=== PATIENT | female | born 1965 | race Caucasian/White ===

== ENCOUNTER 2019-10-28 09:28 | Outpatient (CLI) | payer OTHER, SELFPAY ==
--- NOTE | ~2019-10-28 | MM_ITS ---
EXAMINATION: MM screening [facility] BI w ryan HISTORY: Screening TECHNIQUE: Craniocaudal and mediolateral oblique 3-D tomosynthesis images were obtained and synthetic 2-D images were generated. CAD analysis was submitted and interpreted. COMPARISON: No prior mammogram is available for comparison at this institution. BREAST PARENCHYMAL COMPOSITION: There are scattered areas of fibroglandular density. FINDINGS: There is no evidence of suspicious mass, calcification, or architectural distortion to sugg est malignancy in either breast. There has been no suspicious interval change. IMPRESSION: 1. No mammographic evidence of malignancy. 2. Recommend routine screening mammography in one year. BI-RADS Category 1: Negative Reviewed, dictated and finalized at location A.
== END 2019-10-28 09:29 | disposition home or self-care (01) ==
LOC: ANHIMG 09:31
PROVIDERS: PCP Family Medicine; Visit Provider Family Medicine
DX: Z12.31 Encounter for screening mammogram for malignant neoplasm of breast (principal)
CPT/HCPCS: 77063; 77067

== ENCOUNTER 2020-03-01 12:15 | Emergency (ER) | payer OTHER, SELFPAY ==
--- NOTE | 2020-03-01 12:22 | ED.GENADULT ---
HPI - General Adult General Chief complaint: Unspecified Stated complaint: right ankle spider bite/uti Time Seen by Provider: 03/01/20 12:26 Source: patient Mode of arrival: ambulatory Limitations: no limitations History of Present Illness HPI narrative: 54-year-old female patient presents to the [facility] with complaints of a wound to the right ankle that she first noticed today. Patient denies any itching to the area states that she did use Pred to the area. Patient states she has been bit by a spider before and wanted to come and get checked out. Patient also complaining of odor and dark urine for the last couple of weeks. Denies any urgency, frequency. Patient states she is just had some overall low back pain for the last couple weeks as well. Patient states that she knows she does not drink enough water and does admit to daily beer and liquor use. Patient denies any chest pain, shortness of breath. Denies any fevers, body aches or chills. Patient denies any nausea, vomiting or diarrhea Related Data Home Medications Medication Instructions Recorded Confirmed aspirin 325 mg PO DAILY 03/01/20 03/01/20 ergocalciferol (vitamin D2) 1,250 mcg PO WEEKLY 03/01/20 03/01/20 [Vitamin D2] hydroxyzine pamoate [Vistaril] 25 mg PO TID 03/01/20 03/01/20 lisinopril [Zestril] 40 mg PO DAILY 03/01/20 03/01/20 sertraline [Zoloft] 100 mg PO DAILY 03/01/20 03/01/20 Allergies Allergy/AdvReac Type Severity Reaction Status Date / Time No Known Allergies Allergy Mild Verified 03/01/20 12:43 Review of Systems Review of Systems: Narrative: CONSTITUTIONAL: Denies fever, chills, or sweats. EYES: Denies visual changes, redness, or discharge. ENT: Denies rhinorrhea, congestion, sore throat, or otalgia. CARDIOVASCULAR: Denies chest pain, palpitations, or edema. RESPIRATORY: Denies cough or dyspnea. GASTROINTESTINAL: Denies abdominal pain, nausea, vomiting, or diarrhea. GENITOURINARY: Positive dysuria, denies hematuria. SKIN: Denies rash or itching. Positive wound to right ankle MUSCULOSKELETAL: Positive back pain, denies joint pain, or myalgia. NEUROLOGIC: Denies headache, numbness, or weakness. PSYCHIATRIC: Denies anxiety or depression. [facility] Past Medical History Medical History (Updated 03/01/20 @ 13:18 by CHARMAINE Estrada) Alcoholism Liquor and beer daily Depression Endocarditis Hyperparathyroidism Family History Family History (Updated 03/01/20 @ 13:06 by CHARMAINE Estrada) Other Liver disease Social History Social History (Updated 03/01/20 @ 13:06 by CHARMAINE Estrada) Alcohol intake: current Alcohol use details: Liquor and beer daily Gender identity (if verbalized by the patient): Female Comments At the time of my signature I agree with nursing past medical history, surgical, social, and family history. There is no relevant family history pertinent to the presenting complaint. Exam Narrative: Exam Narrative: GENERAL: Well-appearing, well-nourished, and in no acute distress. Patient having a hard time concentrating on the physical exam HEAD: Normocephalic, atraumatic. EYES: PERRLA and EOMI. no obvious jaundice noted to the eyes at this time. ENT: Nares clear, no rhinorrhea or epistaxis. Mucous membranes moist. Posterior pharynx with no erythema, tonsillar Tab, exudates or lesions present. Bilateral TMs are clear with no erythema or foreign bodies in the canal. NECK: Supple. No lymphadenopathy CHEST: Clear to auscultation. No respiratory distress. HEART: Regular rate and rhythm. No murmur heard. Normal peripheral pulses. ABDOMEN: Soft, nontender, nondistended, normal active bowel sounds. No CVA tenderness. Patient does complain of an achiness to the right upper flank that wraps around to the right upper abdomen EXTREMITIES: Normal range of motion. No edema. SKIN: Warm, dry, no rash. Patient's overall skin color looks a little grayish no obvious jaundice at this time. Patient has a very sma
[2020-03-01 12:30] VITALS: BP 144/84; PULSE 78; RESP 16; TEMP 37.1; O2SAT 99
== END 2020-03-01 13:15 | disposition short-term general hospital (02) ==
PROVIDERS: Emergency Provider Nurse Practitioner Family
DX: S91.001A Unspecified open wound, right ankle, initial encounter (principal); X58.XXXA Exposure to other specified factors, initial encounter; R30.0 Dysuria; F10.20 Alcohol dependence, uncomplicated; F32.9 Major depressive disorder, single episode, unspecified; E21.3 Hyperparathyroidism, unspecified
CPT/HCPCS: 81003; 87086; 87088; 99213; G0463

== ENCOUNTER 2020-03-02 10:09 | Emergency (ER) | payer OTHER, SELFPAY ==
[2020-03-02 10:18] VITALS: BP 135/80; PULSE 77; RESP 18; TEMP 36.6; O2SAT 99
--- NOTE | 2020-03-02 11:16 | ED.GENADULT ---
HPI - General Adult General Chief complaint: Alcohol Stated complaint: etoh withdrawl, liver problems Time Seen by Provider: 03/02/20 11:13 Source: RN notes reviewed History of Present Illness HPI narrative: Patient presents emergency department from home for right ankle wound. Patient states wounds been present for the past 3 days she notes mild erythema to the area but denies any drainage. She states she gone to the urgent care yesterday and to come to the emergency department today for further evaluation. Patient states that she has had no fevers or chills chest pain shortness of breath or any other symptoms she states she does have a history of EtOH abuse and drinks what ever alcohol that she can find she states she last drink yesterday. She denies any seizures or change in mental status Related Data Home Medications Medication Instructions Recorded Confirmed aspirin 325 mg PO DAILY 03/01/20 03/01/20 ergocalciferol (vitamin D2) 1,250 mcg PO WEEKLY 03/01/20 03/01/20 [Vitamin D2] hydroxyzine pamoate [Vistaril] 25 mg PO TID 03/01/20 03/01/20 lisinopril [Zestril] 40 mg PO DAILY 03/01/20 03/01/20 sertraline [Zoloft] 100 mg PO DAILY 03/01/20 03/01/20 Allergies Allergy/AdvReac Type Severity Reaction Status Date / Time No Known Allergies Allergy Mild Verified 03/02/20 10:28 Review of Systems Review of Systems: Narrative: Gen.: Denies fevers or chills Eyes: Denies eye pain or visual change ENT: Denies congestion Respiratory: Denies shortness of breath or cough CV: Denies chest pain or palpitations GI: Denies abdominal pain nausea, emesis or diarrhea Musculoskeletal: Denies back pain or muscle pain Neuro: Denies numbness, tingling, weakness or focal weakness Skin: See HPI Except as documented, all other systems reviewed and negative PMF Past Medical History Medical History Alcoholism Liquor and beer daily Depression Endocarditis Hyperparathyroidism Family History Family History (Updated 03/01/20 @ 13:06 by CHARMAINE Estrada) Other Liver disease Social History Social History (Updated 03/02/20 @ 11:17 by Ernesto Tam DO) Smoking status: Current every day smoker Alcohol intake: current Gender identity (if verbalized by the patient): Female Exam Narrative: Exam Narrative: APPEARANCE: No acute distress, nontoxic, resting in bed EYES: EOMI HEENT: Normocephalic, atraumatic, OMM RESPIRATORY: No respiratory distress Clear to auscultation bilaterally with no rhonchi wheezing or rales. CARDIOVASCULAR: Regular rate and rhythm without murmurs rubs or gallops. ABDOMINAL: Soft, nontender, nondistended, no rebound or guarding MUSCULOSKELETAl: Moves all extremities. No clubbing, cyanosis or edema. Right sided ankle with full range of the right ankle without pain dorsalis pedis pulse 2+ neurovascular intact NEURO: Awake and alert. Following commands, speech normal, no focal deficits SKIN:: Warm, dry. Right medial ankle with area of erythema no drainage or fluctuance the remainder the ankle is nontender PSYCHIATRIC: Normal affect/mood, Course Course Emergency Course: Reviewed records from urgent care yesterday Patient is stating that she wishes to leave at this time. States she would like to return home so she can smoke and drink alcohol. Currently awaiting UA result which is not return I did plan on starting the patient on Keflex for her foot which will cover urine. I discussed with patient her current alcohol use. At this time she does not have any intention of stopping her alcohol use on a daily basis. I did discuss with the patient that she does wish to stop resources can be given Discussed with patient results of workup and diagnosis. Discussed need for follow-up with primary care, proper use of medication, and reasons to return to the emergency department. Patient understands and agrees to current treatment plan Vital Signs Vital signs:
[2020-03-02 11:36] LABS: Basophils Percent Auto 0.3 % (0.2-1.2); Eosinophils Absolute Auto 0.7 K/mm3 (0-0.3); Hematocrit 34.2 % (37.0-47.0); Hemoglobin 11.5 g/dL (12.0-15.0); Immature Granulocyte Absolute 0.04 K/mm3 (0.00-0.031); Immature Granulocyte Percent A 0.6 % (0-0.5); Lymphocytes Absolute Auto 1.59 K/mm3 (0.9-3.2); Lymphocytes Percent Auto 22.5 % (18.3-44.2); Mean Corpuscular HGB Conc 33.6 g/dl (32-36); Mean Corpuscular Hemoglobin 31.2 pg (26-34); Mean Corpuscular Volume 92.7 fl (80-100); Mean Platelet Volume 8.9 fl (7.4-10.4); Monocytes Absolute Auto 0.8 K/mm3 (0.1-0.6); Neutrophils Absolute Auto 3.9 K/mm3 (1.3-6.7); Neutrophils Percent Auto 55.6 % (45.5-73.1); Platelet Count Result 296 k/mm3 (150-375); Red Blood Count 3.69 M/mm3 (4.2-5.4); Red Cell Distribution Width 13.6 % (11.5-14.5); White Blood Count 7.1 K/mm3 (4.5-10.0)
[2020-03-02 11:46] LABS: INR 0.8; Prothrombin Time 11.8 Seconds (11.1-14.7)
[2020-03-02 11:47] LABS: Partial Thromboplastin Time 27.5 SECONDS (22.3-36.8)
[2020-03-02 11:51] LABS: Alanine Aminotransferase 50 U/L (4-35); Albumin Level 3.7 g/dL (3.5-5.1); Alkaline Phosphatase 143 U/L (38-126); Anion Gap 7 mmol/L (8-16); Aspartate Amino Transferase 57 U/L (14-36); Bilirubin,Total 0.4 mg/dL (0.2-1.3); Blood Urea Nitrogen 19 mg/dL (7-17); Calcium 9.1 mg/dL (8.4-10.2); Carbon Dioxide 24 mmol/L (22-30); Chloride 107 mmol/L (98-107); Estimated CRCL calculation 66 ml/min; Estimated Glomerular Filt Rate > 60; Glucose 87 mg/dL (65-105); Sodium 138 mmol/L (137-145)
[2020-03-02 11:57] LABS: Ethanol 15 mg/dL (<10); Salicylate < 1.0 mg/dL (2-20)
--- NOTE | 2020-03-02 12:10 | PC.NURSE ---
urine specimen collected and sent to lab. patient wants to eat and wants to go home soon. updated on current treatment plan and expected wait time.
[2020-03-02 12:28] LABS: Add Urine Microscopic? YES; Appearance Urine Clear (Clear); Bacteria Urine Trace /hpf; Bilirubin Urine Negative (Negative); Blood Urine Negative (Negative); Color Urine Yellow (Yellow); Glucose Urine UA Negative (Negative); Ketones Urine Negative (Negative); Leukocyte Esterase Ur 1+ LEU/UL (Negative); Mucus Urine Rare /lpf; Nitrate Urine Negative (Negative); Protein Urine 1+ mg/dL (Negative); Specific Grav Ur 1.028 (1.001-1.035); Squamous Epithelial Cell Urine Many /hpf (Few); Urobilinogen Urine Negative mg/dL (<2.0)
[2020-03-02 12:40] VITALS: BP 146/81; RESP 18; O2SAT 96
[2020-03-02 12:53] LABS: Barbiturate Screen Urine Negative (Negative); Benzodiazepines Screen Urine Negative (Negative)
[2020-03-02 12:55] LABS: Cannabinoid Screen Urine Negative (Negative); Cocaine Screen Urine Positive (Negative); Methadone Screen Urine Negative (Negative); Opiate Screen Urine Negative (Negative); Phencyclidine Screen Urine Negative (Negative)
[2020-03-02 13:45] LABS: Amphetamine Screen Urine Positive (Negative)
== END 2020-03-02 12:42 | disposition home or self-care (01) ==
PROVIDERS: Emergency Provider Emergency Medicine; PCP Family Medicine
DX: L03.115 Cellulitis of right lower limb (principal); F10.10 Alcohol abuse, uncomplicated; F17.200 Nicotine dependence, unspecified, uncomplicated; F32.9 Major depressive disorder, single episode, unspecified; E21.3 Hyperparathyroidism, unspecified
CPT/HCPCS: 36415; 80053; 80307; 81001; 85025; 85610; 85730; 99283

== ENCOUNTER 2020-10-03 15:18 | Emergency (ER) | payer OTHER, SELFPAY ==
[2020-10-03 15:35] VITALS: BP 116/90; PULSE 95; RESP 16; TEMP 36.7; O2SAT 95
--- NOTE | 2020-10-03 16:17 | ED.SKABFB ---
HPI - Skin/Abscess/Foreign Bdy General Chief complaint: Extremity Injury, Lower Stated complaint: Foot Pain Time Seen by Provider: 10/03/20 16:04 Source: patient and RN notes reviewed Mode of arrival: ambulatory Limitations: no limitations History of Present Illness HPI narrative: Patient presents today complaining of left second toe wound, redness, swelling, and pain. She dropped a ceramic lid on her foot 3 days ago, sustaining an injury that is now draining fluid. 2 months ago, patient had hammertoe fixed on the affected toe with an implant placed in this toe. States she has tried to reach her surgeon to notify them of this injury, but has been unable to. She currently rates her pain 09/03. She has been applying ice and taking naproxen for her pain. MD complaint: discoloration Related Data Home Medications Medication Instructions Recorded Confirmed amlodipine 5 mg PO DAILY 10/03/20 10/03/20 atorvastatin 20 mg PO DAILY 10/03/20 10/03/20 baclofen 10 mg PO BID 10/03/20 10/03/20 ergocalciferol (vitamin D2) 1,250 mcg PO WEEKLY 10/03/20 10/03/20 hydroxyzine pamoate 50 mg PO TID PRN 10/03/20 10/03/20 lisinopril 40 mg PO DAILY 10/03/20 10/03/20 meloxicam 15 mg PO DAILY 10/03/20 10/03/20 Allergies Allergy/AdvReac Type Severity Reaction Status Date / Time No Known Allergies Allergy Verified 10/03/20 16:01 Review of Systems Review of Systems: Narrative: CONSTITUTIONAL: Denies body aches, fever, chills, or sweats. EYES: Denies visual changes, redness, or discharge. ENT: Denies rhinorrhea, congestion, sore throat, or otalgia. CARDIOVASCULAR: Denies chest pain, palpitations, or edema. RESPIRATORY: Denies cough or dyspnea. GASTROINTESTINAL: Denies abdominal pain, nausea, vomiting, or diarrhea. GENITOURINARY: Denies dysuria or hematuria. SKIN: Denies rash, itching. MUSCULOSKELETAL: Denies back pain, or myalgia. + Left second toe wound NEUROLOGIC: Denies headache, numbness, tingling, or weakness. PSYCH: Denies depression or anxiety. PMFSH Comments At time of signature, I have reviewed and agree with nursing past medical, surgical, social and family history unless otherwise noted. Please see nursing chart for further information. There is no relevant family history pertinent to the presenting complaint Exam Narrative: Exam Narrative: GENERAL: Well-appearing, well-nourished, and in no acute distress. HEAD: Normocephalic, atraumatic. EYES: EOMI. No redness or drainage. Conjunctivae normal. ENT: Mucous membranes pink and moist. NECK: Normal AROM. CHEST: No respiratory distress. EXTREMITIES:Left 2nd toe moderate edema and erythema. 7 mm x 5 mm superficial wound draining serous fluid to the proximal phalanx, just distal to the tip of the healed incision for the hammertoe. Distal sensation intact. Capillary refill normal. SKIN: Warm, dry, no rash. Capillary refill normal. Normal skin turgor. NEURO: No focal deficits. Alert and oriented x3. Gait steady. PSYCH: Normal affect. No signs of depression or anxiety. Course Vital Signs Vital signs: Vital Signs Temperature 98.1 F 10/03/20 15:35 Pulse Rate 95 10/03/20 15:35 Respiratory Rate 16 10/03/20 15:35 Blood Pressure 116/90 10/03/20 15:35 Pulse Oximetry 95 10/03/20 15:35 Temperature 98.1 F 10/03/20 15:35 Pulse Rate 95 10/03/20 15:35 Respiratory Rate 16 10/03/20 15:35 Blood Pressure 116/90 10/03/20 15:35 Pulse Oximetry 95 10/03/20 15:35 Reviewed. Pt has been instructed to follow up with her PCP regarding her elevated blood pressure today. MDM - Skin/Abscess/Foreign Bdy Differential Diagnosis Differential diagnosis: Likely abscess of skin or subcutaneous tissue, cellulitis and impetigo Critical Care Time Critical Care Time Critical Care Time: No Discharge Plan Discharge Clinical Impression: Cellulitis of second toe of left foot Patient Disposition: Home, Self-Care Condition: Stable Instructions: Antibiotic Form
== END 2020-10-03 16:28 | disposition home or self-care (01) ==
PROVIDERS: Emergency Provider Nurse Practitioner; PCP Family Medicine
DX: L03.032 Cellulitis of left toe (principal); G25.81 Restless legs syndrome; E78.00 Pure hypercholesterolemia, unspecified; I10 Essential (primary) hypertension
CPT/HCPCS: 99203; G0463

== ENCOUNTER 2020-10-31 08:03 | Outpatient (CLI) | payer OTHER, SELFPAY ==
--- NOTE | ~2020-10-31 | MM_ITS ---
EXAMINATION: MM screening [facility] BI w ryan HISTORY: Screening TECHNIQUE: Craniocaudal and mediolateral oblique 3-D tomosynthesis images were obtained and synthetic 2-D images were generated. CAD analysis was submitted and interpreted. COMPARISON: 10/28/2019 BREAST PARENCHYMAL COMPOSITION: There are scattered areas of fibroglandular density. FINDINGS: There is a 4 mm mass in the lower inner quadrant of the right breast. The left breast is st able without evidence for malignancy. IMPRESSION: 1. New right breast mass, lower inner quadrant. 2. Additional mammographic views and possible breast ultrasound are recommended. BI-RADS Category 0: Incomplete: Needs additional imaging evaluation. Reviewed, dictated and finalized at location A. IMPRESSION: 1. New right breast mass, lower inner quadrant. 2. Additional mammographic views and possible breast ultrasound are recommended . BI-RADS Category 0: Incomplete: Needs additional imaging evaluation.
== END 2020-10-31 08:04 | disposition home or self-care (01) ==
LOC: ANHIMG 08:07
PROVIDERS: PCP Family Medicine; Visit Provider Family Medicine
DX: Z12.31 Encounter for screening mammogram for malignant neoplasm of breast (principal); R92.8 Other abnormal and inconclusive findings on diagnostic imaging of breast
CPT/HCPCS: 77063; 77067

== ENCOUNTER 2020-11-04 07:31 | Inpatient (IN) | payer OTHER, SELFPAY ==
[2020-11-04] VITALS (7 sets, daily range): BP systolic 85–140; BP diastolic 52–89; PULSE 80–97; RESP 18–25; TEMP 36.4–37.6; O2SAT 93–99; BMI 32.1
--- NOTE | ~2020-11-04 | US_ITS ---
EXAMINATION: US renal BI DATE: 11/05/2020 14:14 INDICATION: Acute kidney injury TECHNIQUE: Multiple grayscale and Doppler ultrasound images of the kidneys were obtained. COMPARISON: None. FINDINGS: The right kidney measures 9.6 x 5.0 x 4.7 cm. The left kidney measures 10.3 x 5.6 x 5.0 cm. The kidneys demonstrate normal parenchymal echogenicity. There is no hydronephrosis. The bladder is normal. IMPRESSION: 1. Normal kidneys without hydronephrosis. Reviewed, dictated and finalized at location B.
--- NOTE | ~2020-11-04 | US_ITS ---
EXAMINATION: US abdomen limited DATE: 11/04/2020 11:01 INDICATION: Right upper quadrant abdominal pain. TECHNIQUE: Multiple grayscale and Doppler ultrasound images of the abdomen were obtained. COMPARISON: CT abdomen and pelvis 11/04/2020 FINDINGS: The visualized portions of the head and body of the pancreas are normal. The liver is alejandro l without focal lesion. The gallbladder is distended. No gallstones or gallbladder wall thickening. T here was a positive sonographic Lange sign. The common duct is normal and measures 4 mm. IMPRESSION: 1. Distended gallbladder with positive sonographic Lange sign, but no gallstones or gallbladder wall thickening. These findings are indeterminate for acute cholecystitis. Consider hepatobiliary scintig cheri. Reviewed, dictated and finalized at location A. IMPRESSION: 1. Distended gallbladder with positive sonographic Lange sign, but no gallston es or gallbladder wall thickening. These findings are indeterminate for acute c holecystitis. Consider hepatobiliary scintigraphy.
--- NOTE | ~2020-11-04 | CT_ITS ---
EXAMINATION: CT abdomen pelvis wo con DATE: 11/04/2020 10:12 INDICATION: Right-sided abdominal pain TECHNIQUE: Computed tomography (CT) of the abdomen and pelvis was performed without intravenous contr ast. The dose-length product (DLP) was 1248.57 mGy-cm. Automated exposure control and iterative recon struction technique were employed. COMPARISON: None FINDINGS: There is atelectasis of the visualized lung bases. Cardiomegaly is noted. The gallbladder i s distended. The liver, spleen, pancreas, and adrenal glands are normal. Nonobstructing stones of the right kidney measure up to 2 mm. Nonobstructing stones of the left kidney measure up to 5 mm. No sto ayo are present in the ureters or bladder. There is no hydronephrosis or hydroureter. No pathological ly enlarged abdominal or pelvic lymph nodes are identified. There is no free intraperitoneal gas or e vidence of bowel obstruction. The appendix is normal. There are bilateral L5 pars defects with grade 1 anterolisthesis of L5 on S1. IMPRESSION: 1. Distended gallbladder which could be due to fasting or early cholecystitis. Correlate for right up per quadrant tenderness and if present, ultrasound is recommended. 2. Bilateral nephrolithiasis. Reviewed, dictated and finalized at location B. IMPRESSION: 1. Distended gallbladder which could be due to fasting or early cholecystitis. Correlate for right upper quadrant tenderness and if present, ultrasound is rec ommended. 2. Bilateral nephrolithiasis.
--- NOTE | 2020-11-04 07:44 | ED.ABDPAIN ---
HPI - Abdominal Pain General Chief Complaint: Abdominal Pain Stated Complaint: ABD PAIN History of Present Illness HPI narrative: 55 yo female w/ h/o htn presents to the ED for abdominal pain. Right sided abdominal pain since yesterday. Feels sharp. Associated with nausea, vo iting, diarrhea. She has never had this pain before. History limited by poor historian. Related Data Home Medications Medication Instructions Recorded Confirmed aspirin 325 mg PO DAILY 03/01/20 03/01/20 ergocalciferol (vitamin D2) 1,250 mcg PO WEEKLY 03/01/20 03/01/20 [Vitamin D2] hydroxyzine pamoate [Vistaril] 25 mg PO TID 03/01/20 03/01/20 lisinopril [Zestril] 40 mg PO DAILY 03/01/20 03/01/20 sertraline [Zoloft] 100 mg PO DAILY 03/01/20 03/01/20 Allergies Allergy/AdvReac Type Severity Reaction Status Date / Time No Known Allergies Allergy Mild Verified 11/04/20 07:41 Review of Systems Constitutional: Constitutional: Reports chills Eyes: Eyes: Reports no additional eye complaints ENT: Reports dizziness Cardiovascular: Cardiovascular: Denies chest pain Respiratory: Respiratory: Denies dyspnea Gastrointestinal: Gastrointestinal: Reports as per HPI Genitourinary: Genitourinary: Denies hematuria and Denies dysuria Musculoskeletal: Musculoskeletal: Reports back pain Neurologic: Reports numbness (arms) and Denies weakness [facility] Past Medical History Medical History Alcoholism Liquor and beer daily Depression Endocarditis Hyperparathyroidism Family History Family History Other Liver disease Social History Social History Smoking status: Current every day smoker Alcohol intake: current Alcohol use details: Liquor and beer daily Gender identity (if verbalized by the patient): Female Exam Const: General: healthy appearing, no acute distress and alert Orientation/consciousness: patient oriented x3 HENMT: Head: normal to inspection Mouth: Yes dry mucous membranes Neck: Neck: normal visual inspection Resp: Effort & Inspection: normal respiratory effort Auscultation: clear to auscultation bilaterally, no rales, no rhonchi and no wheezes Cardio: Jugular venous distension: no JVD Rate: regular rate Rhythm: regular rhythm Heart sounds: no murmurs GI: Inspection: distended GI Palp: Yes Soft to palpation, Yes Tenderness to palpation present (GI) (RUQ), No Guarding due to palpation present (GI) and No Rebound tenderness present Skin: General skin exam: normal color Neuro: General: patient oriented x3 and moves all extremities Speech: normal speech Extrem: General: no edema Psych: Appearance: well kempt Affect: normal affect Course Course Emergency Course: Dr. Hoyt will consult. Dr. Roque accepted the admission. Vital Signs Vital signs: Vital Signs Temperature 36.6 C 11/04/20 07:31 Pulse Rate 83 11/04/20 07:31 Respiratory Rate 18 11/04/20 07:31 Blood Pressure 91/69 L 11/04/20 07:31 Pulse Oximetry 98 11/04/20 07:31 Temperature 36.6 C 11/04/20 07:31 Pulse Rate 80 11/04/20 09:06 Respiratory Rate 22 H 11/04/20 09:06 Blood Pressure 97/74 L 11/04/20 09:06 Pulse Oximetry 99 11/04/20 09:06 MDM - Abdominal Pain MDM Narrative Medical decision making narrative: Imaging inconclusive. UA shows UTI. She is in acute renal failure. Baseline creatinine <1, today she is 3.3 Differential Diagnosis Differential diagnosis: Likely acute appendicitis, calculus of kidney, diverticulitis, pancreatitis and other (cholecystitis) Medical Records Attestation: I reviewed the patient's medical records. Lab Data Attestation: I reviewed the patient's lab results. Result diagrams: 11/04/20 07:42 11/04/20 07:42 Labs: Lab Results 11/04/20 11/04/20 11/04/20 Range/Units 07:42 07:42 09:
[2020-11-04 07:51] LABS: Basophils Percent Auto 0.2 % (0.2-1.2); Eosinophils Absolute Auto 0.3 K/mm3 (0-0.3); Eosinophils Percent Auto 2.5 % (0-4.4); Hematocrit 38.8 % (37.0-47.0); Immature Granulocyte Absolute 0.05 K/mm3 (0.00-0.031); Immature Granulocyte Percent A 0.4 % (0-0.5); Lymphocytes Absolute Auto 1.44 K/mm3 (0.9-3.2); Lymphocytes Percent Auto 11.4 % (18.3-44.2); Mean Corpuscular HGB Conc 33.5 g/dl (32-36); Mean Corpuscular Hemoglobin 30.3 pg (26-34); Mean Corpuscular Volume 90.4 fl (80-100); Mean Platelet Volume 9.2 fl (7.4-10.4); Monocytes Absolute Auto 0.8 K/mm3 (0.1-0.6); Monocytes Percent Auto 6.6 % (2.6-8.5); Neutrophils Percent Auto 78.9 % (45.5-73.1); Platelet Count Result 358 k/mm3 (150-375); Red Blood Count 4.29 M/mm3 (4.2-5.4); Red Cell Distribution Width 13.3 % (11.5-14.5); White Blood Count 12.6 K/mm3 (4.5-10.0)
[2020-11-04 08:00] LABS: Alanine Aminotransferase 32 U/L (4-35); Albumin Level 4.5 g/dL (3.5-5.1); Alkaline Phosphatase 125 U/L (38-126); Anion Gap 12 mmol/L (8-16); Aspartate Amino Transferase 36 U/L (14-36); Bilirubin,Total 0.6 mg/dL (0.2-1.3); Blood Urea Nitrogen 48 mg/dL (7-17); Calcium 10.9 mg/dL (8.4-10.2); Carbon Dioxide 17 mmol/L (22-30); Chloride 104 mmol/L (98-107); Estimated CRCL calculation 20 ml/min; Estimated Glomerular Filt Rate 14; Glucose 91 mg/dL (65-110); Lipase 35 U/L (23-300); Potassium 4.7 mmol/L (3.4-5.0); Sodium 133 mmol/L (137-145)
[2020-11-04] MEDS: fentaNYL CITRATE INJ (*CRX) 100 MCG/2 ML VIAL 50 MCG IV PUSH (08:05)
[2020-11-04] MEDS: SODIUM CHLORIDE 0.9% IV 1,000 ML 999 ML IV CONT ×2 (08:05→09:56)
[2020-11-04 09:34] LABS: Add Urine Microscopic? YES; Appearance Urine Clear (Clear); Bacteria Urine Trace /hpf; Bilirubin Urine Negative (Negative); Blood Urine Negative (Negative); Color Urine Yellow (Yellow); Glucose Urine UA Negative (Negative); Hyaline Casts Urine 15-19 /lpf; Ketones Urine Trace mg/dL (Negative); Leukocyte Esterase Ur Negative LEU/UL (Negative); Mucus Urine Rare /lpf; Nitrate Urine Positive (Negative); Protein Urine 1+ mg/dL (Negative); RBC Urine 0-2 /hpf (0-2); Specific Grav Ur 1.023 (1.001-1.035); Urobilinogen Urine Negative mg/dL (<2.0)
[2020-11-04] MEDS: MORPHINE SULFATE (*CRX) 2 MG/ML INJ IV PUSH (11:56)
--- NOTE | 2020-11-04 13:02 | PM.CNGS ---
Assessment and Plan Assessment and plan (1) Abnormal findings on diagnostic imaging of gallbladder: Code(s): R93.2 - Abnormal findings on diagnostic imaging of liver and biliary tract Status: Acute Assessment and Plan: CT scan suggests gallbladder distention but no other findings suggestive of acute cholecystitis. Ultrasound also shows gallbladder distention, with +Lange's sign, but again no gallstones, wall thickening, or pericholecystic fluid. She is complaining of RLQ abdominal pain, which is an atypical area for pain with acute cholecystitis. She seems to be mostly tender in her RLQ and lower abdomen on exam, which is also atypical. Her exam and clinical presentation, along with her imaging showing no cholelithiasis or other signs of cholecystitis, lower the suspicion for acute cholecystitis being the cause of her abdominal pain and symptoms, although this is still a possibility. We will order a HIDA scan to further evaluate for cystic duct patency. Depending on these results, we will decipher further plan of care. If the cystic duct is occluded, then we could consider surgical intervention. Although, if the cystic duct is patent, then we must consider other etiologies for her symptoms. Will keep her NPO for the scan and continue IV fluids, analgesics, and antiemetics. Thank you for allowing us to see the patient in consultation and we will continue to follow along with you. (2) Acute renal failure: Code(s): N17.9 - Acute kidney failure, unspecified Status: Acute Assessment and Plan: Creatinine 3.3 on admission with her last creatinine at 0.8 in February. She appears dehydrated. Received 2 L IV fluids in the ER and would agree with continuous IV fluid hydration. Monitor labs. (3) Abnormal urinalysis: Code(s): R82.90 - Unspecified abnormal findings in urine Status: Acute Assessment and Plan: Urinalysis abnormal with positive nitrates, 1+ protein, 15-19 casts, and 4-6 WBC. She reports oliguria but no other urinary complaints, although poor historian. IV Ceftriaxone ordered for possible urinary tract infection. Urince cx? (4) Alcoholism: Code(s): F10.20 - Alcohol dependence, uncomplicated Status: Inactive Assessment and Plan: Last drink was yesterday. History of heavy alcohol abuse, but patient reports trying to decrease her daily intake. Encouraged her to stop drinking alcohol. (5) Hypertension: Code(s): I10 - Essential (primary) hypertension Status: Acute Additional Plan I have discussed the patient's case and plan of care with Dr. Hoyt. History of Present Illness Consult details Consult date: 11/04/20 Reason for consult: other (CT scan and ultrasound suggesting possible acute cholecystitis) Requesting physician: Tom Osborn MD Narrative: This is a 55-year-old female with a history of hypertension, alcohol abuse, and previous polysubstance abuse, who presented to the ER with complaints of nausea, vomiting, and abdominal pain. Upon questioning, the patient was a poor historian and had multiple conflicting stories. She reports having foot surgery about 9 months ago and recently seeing that surgeon in follow-up, who put her on antibiotics for a foot infection. She states that she initially associated her nausea, vomiting, and abdominal pain with the antibiotics. She initially said she is still currently taking the antibiotics, but later said she took a 7-day course a few weeks ago. She said she has not eaten food in days because of her symptoms, but had last drank alcohol yesterday. With further questioning, she believes her abdominal pain started 2 days ago and suggests it is in her RLQ. She at one point said her vomiting started this morning and later said it has been a few days. No complaints of changes in her bowels. No fevers. She came into the ER today for further evaluation. CT scan of the abdomen and pelvis showed gallbladder distention without gallsto
--- NOTE | 2020-11-04 13:15 | PC.NURSE ---
N[facility] Medicine called to report that they are unable to get the test ran today due to not having the medications to complete the test and that may not be able to be completed until Monday morning.
--- NOTE | 2020-11-04 13:45 | ADMGEN ---
This patient, Missy Montgomery, was admitted to [facility] Surg Room 302-01. Patient/family oriented to hospital policies and general routines including ID bracelet, bed and alarms, visiting hours, pain management, procedures, bathroom and other care routines, personal items, smoking policy, room service/diet, and visiting hours. Information on how to activate the Rapid Response Team has been discussed. Patient/Family are encouraged to report perceived risks to care and to ask questions if they do not understand what they are told or what they should do.
--- NOTE | 2020-11-04 14:10 | PM.IMHP ---
H&P: HPI History of Present Illness Date/Time: 11/04/20 14:00 Chief Complaint: Abdominal pain. Narrative: This a 55-year-old female smoker with history of hypertension and alcohol who presented to the emergency department earlier today via EMS from home for evaluation of abdominal pain. She is not a great historian and seems to contraindicate herself throughout the interview. From what I can gather she developed gradual onset of sharp diffuse right-sided abdominal pain that she has a hard time describing but says that on occasion it feels sharp. The pain does not radiate. It is worse with palpation and movement. She gives no significant alleviating factors. Associated symptoms include nausea and emesis x2. She reports having loose stools as well but denied that to another clinician. She goes on to say that she was prescribed antibiotics recently for an infection at the site of a prior foot surgery, perhaps 1 week ago, and she has not felt well since that time. CT of the abdomen pelvis today showed gallbladder distention without stones or signs of cholecystitis and bilateral nonobstructing nephrolithiasis. Right upper quadrant ultrasound demonstrated a positive Lange sign and distended gallbladder but no wall thickening. Urine was positive for nitrates and 4 to 6 wbc's and she does report mild dysuria but nothing significant. Her LFTs were normal in her white count was a bit elevated. She was found to have an acute kidney injury with a BUN and creatinine of 48 and 3.3 respectively. It does not sound as though she has had good oral intake the last couple of days. She has no known history of kidney disease. She has not had fever, chills, or sweats. She typically drinks 3 to 4 double shots of fireball a day and on occasion she has felt agitated and tremors when not drinking though she denies overt withdrawal symptoms and she reports never having a seizure. Currently she is resting comfortably. Review of Systems Review of Systems: Twelve systems were reviewed. She denies cold and flu symptoms. No cough or shortness of breath. No chest pain, pleuritic pain, or palpitations. She denies hematemesis, melena, and hematochezia. No significant GERD symptoms. She has no history of pancreatitis, gallbladder disease, or peptic ulcers. No rash or lesion. Except as documented, all other systems were reviewed and are negative. [facility]LY [facility] Past Medical History Medical History Alcoholism Liquor and beer daily Depression Endocarditis (1992) Hepatitis C Hyperparathyroidism Hypertension Polysubstance abuse History of polysubstance abuse. Denies current drug use. Was using multiple illicit drugs about 6 months ago. Surgical History Surgical History History of delivery History of foot surgery History of tubal ligation Family History Family History Father FH: kidney cancer Liver disease Rheumatoid arthritis Mother Rheumatoid arthritis Social History Social History (Updated 11/04/20 @ 22:23 by Selene Hudson PA-C) Social History: Surrogate decision maker: [place], spouse. Code status: Full code. Smoking packs per day: 0.5 Smoking cigarettes per day: 10.0 Years smoked: 32 Smoking pack-years: 16.00 Smoking status: Current every day smoker Tobacco type: cigarettes Second hand tobacco smoke exposure: Yes Alcohol intake: current Drinks per week: 28 Alcohol use details: 3 - 4 double shots of fireball a day though she has decreased her intake over the past 6 months or so. Substance use: former Substance use type: crack/cocaine and methamphetamine Other substance usage details: Previous polysubstance abuse. Patient denies recent drug use. Living arrangements: with family Additional living arrangements comments: Lives in [place] with her hu
[2020-11-04] MEDS: SODIUM CHLORIDE 0.9% IV 1,000 ML 125 ML IV CONT (14:22)
[2020-11-04] MEDS: MORPHINE SULFATE (*CRX) 4 MG/ML INJ 2 MG IV PUSH (22:19)
[2020-11-04 22:34] LABS: Anion Gap 7 mmol/L (8-16); Blood Urea Nitrogen 37 mg/dL (7-17); Calcium 9.1 mg/dL (8.4-10.2); Carbon Dioxide 13 mmol/L (22-30); Chloride 107 mmol/L (98-107); Estimated CRCL calculation 50 ml/min; Estimated Glomerular Filt Rate 42; Glucose 107 mg/dL (65-110); Magnesium 1.5 mg/dL (1.6-2.3); Potassium 4.5 mmol/L (3.4-5.0); Sodium 127 mmol/L (137-145)
[2020-11-04 23:02] LABS: Creatine Kinase 70 U/L (30-135)
[2020-11-04 23:03] LABS: Complement C3 83 mg/dL (88-165)
[2020-11-04 23:18] LABS: CRP 15.4 mg/dL (<1.0)
[2020-11-05 00:08] VITALS: BP 105/45
[2020-11-05] MEDS: ACETAMINOPHEN 325 MG TABLET 650 MG PO (05:44)
[2020-11-05] MEDS: MORPHINE SULFATE (*CRX) 4 MG/ML INJ 2 MG IV PUSH ×2 (05:44→14:41)
[2020-11-05 06:00] VITALS: BP 101/52; PULSE 98; RESP 20; TEMP 38.1; O2SAT 93
[2020-11-05 07:15] LABS: Hematocrit 35.2 % (37.0-47.0); Hemoglobin 11.1 g/dL (12.0-15.0); Mean Corpuscular HGB Conc 31.5 g/dl (32-36); Mean Corpuscular Hemoglobin 29.8 pg (26-34); Mean Corpuscular Volume 94.4 fl (80-100); Mean Platelet Volume 9.9 fl (7.4-10.4); Platelet Count Result 294 k/mm3 (150-375); Red Blood Count 3.73 M/mm3 (4.2-5.4); Red Cell Distribution Width 13.7 % (11.5-14.5); White Blood Count 18.6 K/mm3 (4.5-10.0)
[2020-11-05 07:49] LABS: Alanine Aminotransferase 19 U/L (4-35); Albumin Level 3.2 g/dL (3.5-5.1); Alkaline Phosphatase 101 U/L (38-126); Anion Gap 9 mmol/L (8-16); Aspartate Amino Transferase 20 U/L (14-36); Bilirubin,Total 0.5 mg/dL (0.2-1.3); Blood Urea Nitrogen 31 mg/dL (7-17); Calcium 9.2 mg/dL (8.4-10.2); Carbon Dioxide 13 mmol/L (22-30); Chloride 108 mmol/L (98-107); Estimated CRCL calculation 65 ml/min; Estimated Glomerular Filt Rate 57; Glucose 82 mg/dL (65-110); Potassium 4.6 mmol/L (3.4-5.0); Sodium 130 mmol/L (137-145)
--- NOTE | 2020-11-05 09:00 | ECG_ITS ---
Measurements Intervals [place] Rate: 86 P: 31 NV: 163 QRS: 44 QRSD: 103 T: 30 QT: 358 QTc: 430 Interpretive Statements SINUS RHYTHM NORMAL ECG Electronically Signed On 11-05-2020 9:47:38 CDT by Matthew Lagunas D.O.
[2020-11-05] MEDS: SODIUM CHLORIDE 0.9% IV 500 ML 999 ML IV CONT (09:41)
[2020-11-05 09:53] VITALS: BP 114/51; PULSE 90; RESP 16; TEMP 37.4; O2SAT 95
[2020-11-05 10:07] LABS: Lactic Acid Reflex 0.5 mmol/L (0.7-2.1)
[2020-11-05 10:27] LABS: Troponin I < 0.012 ng/mL (0.000-0.034)
[2020-11-05 10:31] LABS: Creatinine Urine 147.4 mg/dL
[2020-11-05 10:50] LABS: Add Urine Microscopic? YES; Appearance Urine Clear (Clear); Bilirubin Urine Negative (Negative); Blood Urine Negative (Negative); Color Urine Yellow (Yellow); Glucose Urine UA Negative (Negative); Ketones Urine Trace mg/dL (Negative); Leukocyte Esterase Ur 3+ LEU/UL (NEGATIVE); Mucus Urine Rare /lpf; Nitrate Urine Negative (Negative); Protein Urine Negative (Negative); Squamous Epithelial Cell Urine Rare /hpf (Few); Urobilinogen Urine Negative mg/dL (<2.0)
[2020-11-05 10:54] LABS: Eosinophil Urine None Seen % (None Seen)
[2020-11-05 10:58] LABS: Potassium Urine Random 30.8 meq/L; Sodium Urine Random 49 meq/L
[2020-11-05 10:58] LABS: CRP 25.1 mg/dL (<1.0); Magnesium 1.6 mg/dL (1.6-2.3)
[2020-11-05 13:22] LABS: Troponin I < 0.012 ng/mL (0.000-0.034)
[2020-11-05 14:00] VITALS: BP 115/63; PULSE 82; RESP 20; TEMP 37.2; O2SAT 95
[2020-11-05] MEDS: SODIUM CHLORIDE 0.9% IV 1,000 ML 125 ML IV CONT ×2 (14:40→21:21)
--- NOTE | 2020-11-05 16:11 | PM.PNGS ---
Progress Note: A&P Assessment and Plan (1) Abnormal findings on diagnostic imaging of gallbladder: Code(s): R93.2 - Abnormal findings on diagnostic imaging of liver and biliary tract Status: Acute Assessment and Plan: WBC up to 18,600 today with a low grade fever this morning. Although, she is showing signs of clinical improvement. Abdominal pain has improved significantly, and still remains mostly in the RLQ with all lower abdominal tenderness, which is atypical. Awaiting HIDA scan. I spoke with [facility] who says they have the CCK available but not the radioactive medication, therefore this cannot be done until tomorrow morning when they have the medication. If this shows cystic duct occlusion, then I discussed with the patient that she may need a cholecystectomy. Otherwise, will need to consider other etiologies for her abdominal pain and leukocytosis. (2) Acute renal failure: Code(s): N17.9 - Acute kidney failure, unspecified Status: Acute Assessment and Plan: Responded well to IV fluid hydration. Creatinine down to normal today (1.0). Monitor labs. (3) Abnormal urinalysis: Code(s): R82.90 - Unspecified abnormal findings in urine Status: Acute Assessment and Plan: Abnormal urinalysis and apparently did have some dysuria prior to admission. Agree with IV ceftriaxone. Urine cx pending. (4) Alcoholism: Code(s): F10.20 - Alcohol dependence, uncomplicated Status: Inactive Assessment and Plan: On CIWA protocol (5) Hypertension: Code(s): I10 - Essential (primary) hypertension Status: Acute Additional Plan I have discussed the plan of care with Dr. Hoyt. Subjective Subjective Date/Time Seen: 11/05/20 13:11 Patient reports: no new complaints, feels better, pain is less, flatus, no bowel movement and fever (temp 100.5F at 6am) Interval history: Patient seen today and feeling much better. She reports significant improvement in her abdominal pain. She is now pointing more to the right mid abdomen in location of her abdominal pain. Denies any nausea or vomiting today. No other complaints at this time. Review of Systems Review of Systems: All systems reviewed & are unremarkable except as noted in HPI and below Exam Const: General: other (sleeping upon entering the room, arousable to name) Resp: Effort & Inspection: no respiratory distress Auscultation: clear to auscultation bilaterally Cardio: Rate: regular rate Rhythm: regular rhythm GI: Inspection: non-distended GI Palp: Yes Soft to palpation, Yes Tenderness to palpation present (GI) (mostly tender in RLQ, somewhat tender in LLQ), Yes Guarding due to palpation present (GI) (lower abd), No Hernia present and No Rebound tenderness present Auscultation: normal bowel sounds Neuro: General: moves all extremities and no focal motor deficits Extrem: General: no clubbing, cyanosis or edema Psych: Affect: normal affect Insight: Fair insight present (Psych) Judgement: Fair judgement present (Psych) Objective Data Vital Signs Vital Signs: Vital Signs - 24 hr 11/04/20 22:00 11/05/20 00:08 11/05/20 06:00 Temperature 99.6 F 100.5 F H Pulse Rate 96 98 Respiratory Rate 20 20 Blood Pressure 85/52 L 105/45 L 101/52 L Pulse Oximetry 97 93 11/05/20 09:53 11/05/20 14:00 Temperature 99.4 F 98.9 F Pulse Rate 90 82 Respiratory Rate 16 20 Blood Pressure 114/51 L 115/63 Pulse Oximetry 95 95 Intake/Output Intake/Output: Intake & Output 11/02/20 11/03/20 11/04/20 11/05/20 23:59 23:59 23:59 23:59 Intake Total 3650 400 Output Total 750 Balance 2900 400 Meds/Results Medications: Active Medications Generic Name Dose Route Start Last Admin Trade Name Freq PRN Reason Stop Dose Admin Acetaminophen 650 mg 11/05/20 05:22 11/05/20 05:44 Acetaminophen 325 Mg Tablet PO 650 mg Q6H PRN Administration Mild Pain (1-3) or Fever Chlordiazepoxide HCl 10 mg
--- NOTE | 2020-11-05 19:28 | PM.IMPN ---
Progress Note: A&P Assessment and Plan (1) Alcohol abuse: Code(s): F10.10 - Alcohol abuse, uncomplicated Status: Acute (2) Hypertension: Qualifiers: Hypertension type: unspecified Qualified Code(s): I10 - Essential (primary) hypertension Code(s): I10 - Essential (primary) hypertension Status: Acute (3) Leukocytosis: Qualifiers: Leukocytosis type: unspecified Qualified Code(s): D72.829 - Elevated white blood cell count, unspecified Code(s): D72.829 - Elevated white blood cell count, unspecified Status: Acute (4) Hyponatremia: Code(s): E87.1 - Hypo-osmolality and hyponatremia Status: Acute (5) DIXON (acute kidney injury): Code(s): N17.9 - Acute kidney failure, unspecified Status: Acute (6) Normal anion gap metabolic acidosis: Code(s): E87.2 - Acidosis Status: Acute (7) Hypomagnesemia: Code(s): E83.42 - Hypomagnesemia Status: Acute (8) Substance abuse: Code(s): F19.10 - Other psychoactive substance abuse, uncomplicated Status: Acute (9) Cholecystitis: Code(s): K81.9 - Cholecystitis, unspecified Status: Acute (10) Sepsis: Qualifiers: Sepsis type: sepsis due to unspecified organism Severe sepsis acute organ dysfunction type: acute renal failure Acute renal failure type: unspecified Severe sepsis shock status: unspecified Code(s): A41.9 - Sepsis, unspecified organism Status: Acute Additional Plan Patient will be tested for urinary electrolytes for NAGMA possible contribution from alcohol use Also urine drug screen was found to be positive for Cocaine and acetaminophen continue IV Abx continue treating as a case of sepsis Time Spent With Patient Time with patient: 25 - 35 minutes Subjective Date/time seen: 11/05/20 19:28 55-year-old female with past medical history significant for hypertension, hyperlipidemia and depression presented with complaints of abdominal pain. She is being managed as a case of possible cholecystitis with concerns for sepsis. CT abdomen pelvis performed revealed concerns for distended gallbladder and early cholecystitis this was followed up with ultrasound that did show concerns for positive sonographic Lange sign however both these imaging tests remain indeterminate for cholecystitis. HIDA scan has been requested however will be unable to be performed before 11/06. General surgery is on board and patient is being managed Review of Systems Review of Systems: A 10 point review of system was conducted which was otherwise negative Exam Narrative: General: Well-developed female supine in bed in no distress. Weight: 93 kg. BMI: 32.1. HEENT: PERRL, EOMI. Sclerae anicteric. Tacky mucous membranes. Neck: Supple. Respiratory: Lungs are clear to auscultation bilaterally. Cardiovascular: Regular rate and rhythm with S1-S2. Gastrointestinal: Abdomen is soft and nondistended with positive bowel sounds. Demonstrates voluntary guarding with palpation of the right side of the abdomen, more so in the right upper and middle quadrant. Negative Lange sign at the time my evaluation. Skin: Warm and dry. No rash or lesions on limited exam. Extremities: No cyanosis, clubbing, or edema. Radial and pedal pulses intact. Neurological: Alert. Cranial nerves 2-12 are grossly intact. No tremors. No gross focal deficits to casual conversation. Psychiatric: Appropriate mood and affect. Objective Data Vital Signs Vital Signs: Vital Signs - 24 hr 11/04/20 22:00 11/05/20 00:08 11/05/20 06:00 Temperature 99.6 F 100.5 F H Pulse Rate 96 98 Respiratory Rate 20 20 Blood Pressure 85/52 L 105/45 L 101/52 L Pulse Oximetry 97 93 11/05/20 09:53 11/05/20 14:00 Temperature 99.4 F 98.9 F Pulse Rate 90 82 Respiratory Rate 16 20 Blood Pressure 114/51 L 115/63 Pulse Oximetry 95 95 Intake/Output Intake/Output: Intake & Output 11/02/20
[2020-11-05 20:33] LABS: Troponin I < 0.012 ng/mL (0.000-0.034)
[2020-11-05 22:00] VITALS: BP 106/64; PULSE 88; RESP 18; TEMP 37.2; O2SAT 94
[2020-11-06] MEDS: ACETAMINOPHEN 325 MG TABLET 650 MG PO ×2 (00:51→08:05)
[2020-11-06] MEDS: SODIUM CHLORIDE 0.9% IV 1,000 ML 125 ML IV CONT (05:09)
[2020-11-06 06:00] VITALS: BP 125/69; PULSE 80; RESP 18; TEMP 36.6; O2SAT 97
[2020-11-06 06:56] LABS: Basophils Percent Auto 0.2 % (0.2-1.2); Eosinophils Absolute Auto 0.2 K/mm3 (0-0.3); Eosinophils Percent Auto 0.9 % (0-4.4); Hematocrit 34.6 % (37.0-47.0); Hemoglobin 10.9 g/dL (12.0-15.0); Immature Granulocyte Absolute 0.16 K/mm3 (0.00-0.031); Lymphocytes Absolute Auto 1.69 K/mm3 (0.9-3.2); Lymphocytes Percent Auto 10.3 % (18.3-44.2); Mean Corpuscular HGB Conc 31.5 g/dl (32-36); Mean Corpuscular Hemoglobin 29.8 pg (26-34); Mean Corpuscular Volume 94.5 fl (80-100); Mean Platelet Volume 9.6 fl (7.4-10.4); Monocytes Absolute Auto 0.8 K/mm3 (0.1-0.6); Monocytes Percent Auto 4.7 % (2.6-8.5); Neutrophils Absolute Auto 13.5 K/mm3 (1.3-6.7); Neutrophils Percent Auto 82.9 % (45.5-73.1); Platelet Count Result 269 k/mm3 (150-375); Red Blood Count 3.66 M/mm3 (4.2-5.4); Red Cell Distribution Width 13.4 % (11.5-14.5); White Blood Count 16.3 K/mm3 (4.5-10.0)
[2020-11-06 07:44] LABS: Lactic Acid Reflex 0.7 mmol/L (0.7-2.1)
--- NOTE | 2020-11-06 09:27 | PM.PNGS ---
Progress Note: A&P Assessment and Plan (1) Right lower quadrant abdominal pain: Code(s): R10.31 - Right lower quadrant pain Status: Acute Assessment and Plan: Persistent pain in tenderness right lower quadrant. CT scan was negative. Consider CROOK OPERATOR consult. Appendix was normal on CT (2) Abnormal findings on diagnostic imaging of gallbladder: Code(s): R93.2 - Abnormal findings on diagnostic imaging of liver and biliary tract Status: Acute Assessment and Plan: Gallbladder dilated but no evidence of cholecystitis. Unable to do HIDA scan yesterday as they did not have the technetium. Plan is to do the HIDA scan today. I doubt that we will be doing gallbladder surgery however. Pain and tenderness seemed to be in the right lower quadrant and there is no tenderness over the area of right upper quadrant. (3) Fever: Code(s): R50.9 - Fever, unspecified Status: Acute Assessment and Plan: Resolved since yesterday morning (4) Leukocytosis: Qualifiers: Leukocytosis type: unspecified Qualified Code(s): D72.829 - Elevated white blood cell count, unspecified Code(s): D72.829 - Elevated white blood cell count, unspecified Status: Acute Assessment and Plan: White count decreased from yesterday but still higher than on admission (5) Abnormal urinalysis: Code(s): R82.90 - Unspecified abnormal findings in urine Status: Acute Assessment and Plan: Mild abnormality. Culture pending. On Zosyn. Subjective Subjective Date/Time Seen: 11/06/20 09:27 Patient reports: still having pain (Right lower quadrant) and afebrile (No fever since yesterday morning) Review of Systems Review of Systems: All systems reviewed & are unremarkable except as noted in HPI and below Constitutional: Constitutional: Denies chills, Denies fever(s), Denies headache(s) and Reports poor appetite Cardiovascular: Cardiovascular: Denies chest pain and Denies dyspnea Respiratory: Respiratory: Denies cough and Denies dyspnea Gastrointestinal: Gastrointestinal: Reports as per HPI, Reports abdominal pain (Right lower quadrant), Denies heartburn and Denies nausea Neurologic: Denies confusion and Denies headache(s) Exam Const: General: comfortable and no acute distress; No confusion Orientation/consciousness: patient oriented x3 and No confusion GI: Inspection: normal to inspection and non-distended GI Palp: Yes Soft to palpation, Yes Tenderness to palpation present (GI) (Right lower quadrant), No Guarding due to palpation present (GI) and No Rebound tenderness present Auscultation: normal bowel sounds Neuro: General: patient oriented x3, no focal motor deficits and No confusion Extrem: General: no calf tenderness and no edema Psych: Affect: normal affect Insight: Good insight present (Psych) Judgement: Good judgement present (Psych) Objective Data Vital Signs Vital Signs: Vital Signs - 24 hr 11/05/20 09:53 11/05/20 14:00 11/05/20 22:00 Temperature 37.4 C 37.2 C 37.2 C Pulse Rate 90 82 88 Respiratory Rate 16 20 18 Blood Pressure 114/51 L 115/63 106/64 Pulse Oximetry 95 95 94 11/06/20 06:00 Temperature 36.6 C Pulse Rate 80 Respiratory Rate 18 Blood Pressure 125/69 Pulse Oximetry 97 Intake/Output Intake/Output: Intake & Output 11/03/20 11/04/20 11/05/20 11/06/20 23:59 23:59 23:59 23:59 Intake Total 3650 1600 1400 Output Total 750 1200 900 Balance 2900 400 500 Meds/Results Medications: Active Medications Generic Name Dose Route Start Last Admin Trade Name Freq PRN Reason Stop Dose Admin Acetaminophen 650 mg 11/05/20 05:22 11/06/20 08:05 Acetaminophen 325 Mg Tablet PO 650 mg Q6H PRN Administration Mild Pain (1-3) or Fever Chlordiazepoxide HCl 10 mg 11/04/20 22:28 Chlordiazepoxide (*Crx) 10 Mg Capsule PO Q8H PRN Alcohol withdrawal symptoms, C Folic Acid 1 mg 11/05/20 09:00 11/05/20 17:
[2020-11-06 09:42] LABS: Troponin I < 0.012 ng/mL (0.000-0.034)
--- NOTE | 2020-11-06 09:53 | PC.NURSE ---
Patient wanting to leave AMA. BRANDT Stanton notified Dr. Roque & Dr. Hoyt. Risks and benefits discussed with patient. AMA form signed, IV out.
[2020-11-06 10:12] LABS: Alanine Aminotransferase 16 U/L (4-35); Alkaline Phosphatase 105 U/L (38-126); Anion Gap 9 mmol/L (8-16); Aspartate Amino Transferase 17 U/L (14-36); Bilirubin,Total 0.4 mg/dL (0.2-1.3); Blood Urea Nitrogen 16 mg/dL (7-17); CRP 26.7 mg/dL (<1.0); Calcium 9.1 mg/dL (8.4-10.2); Carbon Dioxide 15 mmol/L (22-30); Chloride 111 mmol/L (98-107); Estimated CRCL calculation 85 ml/min; Estimated Glomerular Filt Rate > 60; Glucose 70 mg/dL (65-110); Lactate Dehydrogenase 401 U/L (313-618); Lipase 20 U/L (23-300); Potassium 4.2 mmol/L (3.4-5.0); Sodium 135 mmol/L (137-145)
--- NOTE | 2020-11-06 17:33 | PM.IMPN ---
Progress Note: A&P Assessment and Plan (1) Fever: Code(s): R50.9 - Fever, unspecified Status: Acute (2) Right lower quadrant abdominal pain: Code(s): R10.31 - Right lower quadrant pain Status: Acute (3) Sepsis: Qualifiers: Sepsis type: sepsis due to unspecified organism Severe sepsis acute organ dysfunction type: acute renal failure Acute renal failure type: unspecified Severe sepsis shock status: unspecified Code(s): A41.9 - Sepsis, unspecified organism Status: Acute (4) Cholecystitis: Code(s): K81.9 - Cholecystitis, unspecified Status: Acute (5) Substance abuse: Code(s): F19.10 - Other psychoactive substance abuse, uncomplicated Status: Acute (6) Hypomagnesemia: Code(s): E83.42 - Hypomagnesemia Status: Acute (7) Normal anion gap metabolic acidosis: Code(s): E87.2 - Acidosis Status: Acute (8) DIXON (acute kidney injury): Code(s): N17.9 - Acute kidney failure, unspecified Status: Acute (9) Hyponatremia: Code(s): E87.1 - Hypo-osmolality and hyponatremia Status: Acute (10) Leukocytosis: Qualifiers: Leukocytosis type: unspecified Qualified Code(s): D72.829 - Elevated white blood cell count, unspecified Code(s): D72.829 - Elevated white blood cell count, unspecified Status: Acute (11) Hepatitis C: Qualifiers: Viral hepatitis chronicity: unspecified Hepatic coma status: without hepatic coma Qualified Code(s): B19.20 - Unspecified viral hepatitis C without hepatic coma Code(s): B19.20 - Unspecified viral hepatitis C without hepatic coma Status: Acute (12) Alcohol abuse: Code(s): F10.10 - Alcohol abuse, uncomplicated Status: Acute (13) Abnormal urinalysis: Code(s): R82.90 - Unspecified abnormal findings in urine Status: Acute (14) Hypertension: Qualifiers: Hypertension type: unspecified Qualified Code(s): I10 - Essential (primary) hypertension Code(s): I10 - Essential (primary) hypertension Status: Acute Additional Plan Patient continued to have hypernatremia, non-anion gap metabolic acidosis. She was noted to have improving leukocytosis and was planned to have a HIDA scan this morning however she signed out AMA without being seen or getting further lab work performed. Time Spent With Patient Time with patient: less than 15 minutes Subjective Date/time seen: 11/06/20 17:33 I was called by nursing and informed that the patient wants to leave AMA and has been advised to pick her up. She was not seen by the hospitalist and left AMA. Review of Systems Review of Systems: Unable to be performed because the patient left AMA without being seen Exam Narrative: Unable to be performed occurred the patient left AMA without being seen Objective Data Vital Signs Vital Signs: Vital Signs - 24 hr 11/05/20 22:00 11/06/20 06:00 Temperature 98.9 F 97.9 F Pulse Rate 88 80 Respiratory Rate 18 18 Blood Pressure 106/64 125/69 Pulse Oximetry 94 97 Intake/Output Intake/Output: Intake & Output 11/03/20 11/04/20 11/05/20 11/06/20 23:59 23:59 23:59 23:59 Intake Total 3650 1600 1400 Output Total 750 1200 900 Balance 2900 400 500 Meds/Results Radiology Results: ITS Impressions Abdomen/Pelvis CT 11/04/20 10:14 IMPRESSION: 1. Distended gallbladder which could be due to fasting or early cholecystitis. Correlate for right upper quadrant tenderness and if present, ultrasound is recommended. 2. Bilateral nephrolithiasis. Abdomen Ultrasound 11/04/20 11:04 IMPRESSION: 1. Distended gallbladder with positive sonographic Lange sign, but no gallstones or gallbladder wall thickening. These findings are indeterminate for acute cholecystitis. Consider hepatobiliary scintigraphy. Renal Ultrasound 11/05/20 14:18 IMPRESSION: 1. Normal kidneys without hydronephrosis.
[2020-11-09 06:03] LABS: Osmolality, Urine 616 mOsm/kg (50-1200)
== END 2020-11-06 09:50 | disposition left against medical advice (07) | DRG 720 ==
LOC: ANHED 13:30 → ANH3MEDSUR 13:37
PROVIDERS: Physician Assistant; Admitting Provider Internal Medicine; Emergency Provider Emergency Medicine; PCP Family Medicine; Visit Provider Internal Medicine
DX: A41.9 Sepsis, unspecified organism; N17.9 Acute kidney failure, unspecified; R82.90 Unspecified abnormal findings in urine; R93.2 Abnormal findings on diagnostic imaging of liver and biliary tract; I10 Essential (primary) hypertension; F10.20 Alcohol dependence, uncomplicated; F17.210 Nicotine dependence, cigarettes, uncomplicated; K81.9 Cholecystitis, unspecified; R65.20 Severe sepsis without septic shock; F19.10 Other psychoactive substance abuse, uncomplicated; R10.31 Right lower quadrant pain; B19.20 Unspecified viral hepatitis C without hepatic coma; E83.42 Hypomagnesemia; E87.2 Acidosis; E87.1 Hypo-osmolality and hyponatremia; E78.5 Hyperlipidemia, unspecified; F32.9 Major depressive disorder, single episode, unspecified; Z79.82 Long term (current) use of aspirin; Z79.899 Other long term (current) drug therapy
CPT/HCPCS: 36415; 51701; 74176; 76705; 76775; 80048; 80053; 80076; 81001; 81025; 82550; 82570; 83605; 83615; 83690; 83735; 83935; 84133; 84145; 84300; 84484; 85025; 85027; 85999; 86140; 86160; 87040; 87086; 87088; 93005; 96361; 96374; 99285; A9270; J0696; J2270; J2543; J3010; J7030

== ENCOUNTER 2020-12-21 13:38 | Outpatient (CLI) | payer OTHER, SELFPAY ==
--- NOTE | ~2020-12-21 | MM_ITS ---
EXAMINATION: MM diagnostic yanely RT w ryan HISTORY: Follow-up right breast mass TECHNIQUE: Additional 3-D tomosynthesis images of right were performed and synthetic 2-D images were generated. CAD analysis was submitted and interpreted. COMPARISON: 10/31/2020 BREAST PARENCHYMAL COMPOSITION: Breast composed of scattered areas of fibroglandular density. FINDINGS: There is a 4 mm mass in the lower inner quadrant of the right breast, middle third. There a re no suspicious calcifications or architectural distortion. IMPRESSION: 1. Right breast mass measuring 4 mm in the lower inner quadrant. 2. Right breast ultrasound recommended. BI-RADS Category 0: Incomplete: Needs additional imaging evaluation. Reviewed, dictated and finalized at location A.
== END 2020-12-21 13:39 | disposition home or self-care (01) ==
LOC: ANHIMG 13:42
PROVIDERS: PCP Family Medicine; Visit Provider Family Medicine
DX: R92.8 Other abnormal and inconclusive findings on diagnostic imaging of breast (principal)
CPT/HCPCS: 77061; 77065; G0279

== ENCOUNTER 2020-12-31 11:27 | Outpatient (CLI) | payer OTHER, SELFPAY ==
--- NOTE | ~2020-12-31 | US_ITS ---
EXAMINATION: US breast RT limited HISTORY: Indeterminate right breast mass on diagnostic mammogram TECHNIQUE: Limited right breast ultrasound is performed. FINDINGS: There is a 4 mm x 3 mm cyst at the 4:00 location 2 cm from the nipple corresponding to the mammographic finding in question. No suspicious cystic or solid mass is identified. IMPRESSION: Right breast cyst corresponding to the mammographic abnormality. Routine screening mammography in one year is recommended. BI-RADS Category 2: Benign finding(s). Reviewed, dictated and finalized at location A. IMPRESSION: Right breast cyst corresponding to the mammographic abnormality. Routine screen ing mammography in one year is recommended. BI-RADS Category 2: Benign finding(s).
== END 2020-12-31 11:28 | disposition home or self-care (01) ==
PROVIDERS: PCP Family Medicine; Visit Provider Family Medicine
DX: N60.01 Solitary cyst of right breast (principal)
CPT/HCPCS: 76642

== ENCOUNTER 2021-02-19 08:15 | Outpatient (CLI) | payer OTHER, SELFPAY ==
[2021-02-19 09:39] LABS: Alanine Aminotransferase 31 U/L (4-35); Albumin Level 4.2 g/dL (3.5-5.1); Alkaline Phosphatase 139 U/L (38-126); Aspartate Amino Transferase 34 U/L (14-36); Bilirubin,Total 0.5 mg/dL (0.2-1.3)
== END 2021-02-19 08:16 | disposition home or self-care (01) ==
LOC: ANHIMG 08:17
PROVIDERS: PCP Family Medicine; Visit Provider Surgery
DX: B35.1 Tinea unguium (principal)
CPT/HCPCS: 36415; 80076

== ENCOUNTER 2021-03-09 07:39 | Outpatient (CLI) | payer OTHER, SELFPAY ==
--- NOTE | ~2021-03-09 | NM_ITS ---
EXAMINATION: NM hepatobiliary wo pharm DATE: 03/09/2021 10:11 INDICATION: Right upper quadrant abdominal pain. COMPARISON: Ultrasound 11/04/2020 TECHNIQUE: 4.9 mCi Tc-99m mebrofenin (Choletec) was administered intravenously. Scintigraphic images of the abdomen were obtained for one hour. Then, the patient drank 8 oz Ensure, and imaging was cont inued for 60 minutes. FINDINGS: There is normal clearance of radiotracer from the blood pool. There is homogeneous tracer u ptake by the liver. Activity progresses to the bowel and gallbladder. Gallbladder ejection fraction (GBEF) was 31%. Note that with this technique, normal GBEF >= 33%. IMPRESSION: 1. Low gallbladder ejection fraction, consistent with gallbladder dysfunction and/or chronic cholecy stitis. Reviewed, dictated and finalized at location A. RNATIONAL TRADE ANALYST IMPRESSION: 1. Low gallbladder ejection fraction, consistent with gallbladder dysfunction and/or chronic cholecystitis.
== END 2021-03-09 07:40 | disposition home or self-care (01) ==
LOC: ANHIMG 07:43
PROVIDERS: PCP Family Medicine; Visit Provider Surgery
DX: R10.11 Right upper quadrant pain (principal)
CPT/HCPCS: 78226; A9537

== ENCOUNTER 2021-06-24 16:26 | Emergency (ER) | payer OTHER, SELFPAY ==
[2021-06-24] VITALS (17 sets, daily range): BP systolic 127–198; BP diastolic 80–186; PULSE 79–110; RESP 15–20; TEMP 36–36.4; O2SAT 96–100
--- NOTE | ~2021-06-24 | XR_ITS ---
EXAMINATION: XR foot LT min 3V DATE: 06/24/2021 18:51 INDICATION: Left fourth toe wound. TECHNIQUE: 4 views of left foot were obtained. COMPARISON: None. FINDINGS: There are changes of bunionectomy with 2 screws in first metatarsal and staple in first pro ximal phalanx. There is a healed osteotomy of neck of second metatarsal with screw fixation. There ar e changes of resection of base of second middle phalanx and head of second proximal phalanx. There is an attempted fusion procedure involving second proximal and middle phalanges with instrumentation wi th lucencies around the implant in the middle phalanx, consistent with loosening. There is an old hea led fracture of fifth proximal phalanx. There is mild polyarticular osteoarthritis involving the inte rphalangeal joints. There is an enthesophyte at plantar aspect of calcaneal tuberosity. IMPRESSION: 1. Fusion procedure involving second proximal and middle phalanges with lucencies in the middle phala nx around the implant, consistent with loosening. 2. Mild polyarticular osteoarthritis. Reviewed, dictated and finalized at location A. IMPRESSION: 1. Fusion procedure involving second proximal and middle phalanges with lucenci es in the middle phalanx around the implant, consistent with loosening. 2. Mild polyarticular osteoarthritis.
--- NOTE | ~2021-06-24 | CT_ITS ---
EXAMINATION: CT brain wo con DATE: 06/24/2021 18:52 INDICATION: Confusion. TECHNIQUE: Computed tomography (CT) of the head was performed without intravenous contrast. The mA wa s adjusted according to patient size. Iterative reconstruction technique was employed. The dose-lengt h product was 605.33 mGy-cm. COMPARISON: None FINDINGS: There is no intracranial hemorrhage, acute infarction, or abnormal intracranial mass lesion . The ventricles are normal in size. The orbits are normal. The paranasal sinuses are clear. The mast oid air cells are normal. IMPRESSION: 1. Normal brain. Reviewed, dictated and finalized at location A. IMPRESSION: 1. Normal brain.
--- NOTE | 2021-06-24 18:14 | PC.NURSE ---
REPORTS THE PAST 4 DAYS PT HAS HAD AMS. HE ALSO REPORTS PT DRINKS FIREBALL DAILY MUCH SHE CAN DRINK PT IS A/OX 3. PT REPORTS SHE IS IN THE ED BECAUSE OVER 24 HRS SHE TOOK 10 NAPROXEN FOR LEFT FOOT PAIN. PT REPORTS SHE HAS HAD 10 SHOTS OF VODKA TODAY
--- NOTE | 2021-06-24 18:36 | ED.AMS ---
HPI - Altered Mental Status General Chief Complaint: Altered Mental Status Stated Complaint: altered Time Seen by Provider: 06/24/21 18:24 Source: patient Mode of arrival: ambulatory Limitations: intoxication History of Present Illness HPI narrative: This is a 55 year old female that presents to the ER for altered mental status. Reports patient's was concerned about her today. She was acting off. She has been drinking alcohol today. She is a daily drinker. Does not quantify amount, just states a lot . She also started her bowel prep today because she thought she thought her colonoscopy tomorrow. Realized it is not scheduled until August. Patient also reports pain in her left foot for which she has been taking anti-inflammatories. Denies fever, chest pain, abdominal pain, vomiting, dysuria, blood in the stool, or focal weakness or numbness. Related Data Home Medications Medication Instructions Recorded Confirmed aspirin 325 mg PO DAILY 03/01/20 02/08/21 lisinopril [Zestril] 40 mg PO DAILY 03/01/20 02/08/21 amlodipine 5 mg PO DAILY 10/03/20 02/08/21 atorvastatin 20 mg PO DAILY 10/03/20 02/08/21 baclofen 10 mg PO BID 10/03/20 02/08/21 ergocalciferol (vitamin D2) 1,250 mcg PO WEEKLY 10/03/20 02/08/21 hydroxyzine pamoate 50 mg PO TID PRN 10/03/20 02/08/21 Allergies Allergy/AdvReac Type Severity Reaction Status Date / Time No Known Allergies Allergy Verified 06/24/21 16:29 Review of Systems Review of Systems: CONSTITUTIONAL: Denies fever CARDIOVASCULAR: Denies chest pain RESPIRATORY: Denies dyspnea. GASTROINTESTINAL: Denies abdominal pain, nausea, vomiting GENITOURINARY: Denies dysuria All systems reviewed & are unremarkable except as noted in HPI and below PMFSH Past Medical History Medical History Alcoholism Liquor and beer daily Depression Endocarditis (1992) Hepatitis C Hyperparathyroidism Hypertension Polysubstance abuse History of polysubstance abuse. Denies current drug use. Was using multiple illicit drugs about 6 months ago. Surgical History Surgical History H/O partial thyroidectomy History of delivery History of foot surgery History of tubal ligation Family History Family History Father , age 60 FH: kidney cancer Liver disease Rheumatoid arthritis Mother Rheumatoid arthritis Grandparent Acute myocardial infarction Lung cancer Tuberculosis Social History Social History (System 02/19/21 @ 08:58 by Elmer Reich) Social History: Surrogate decision maker: [place], spouse. Code status: Full code. Smoking packs per day: 0.5 Smoking cigarettes per day: 10.0 Years smoked: 32 Smoking pack-years: 16.00 Smoking status: Current every day smoker Tobacco type: cigarettes Second hand tobacco smoke exposure: Yes Alcohol intake: current Drinks per week: 28 Alcohol use details: 3 - 4 double shots of fireball a day though she has decreased her intake over the past 6 months or so. Substance use: former Substance use type: crack/cocaine and methamphetamine Other substance usage details: Previous polysubstance abuse. Patient denies recent drug use. Additional living arrangements comments: Lives in [place] with her . 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 HEAD: Normocephalic, atraumatic. EYES: PERRLA and EOMI. ENT: Nares clear, no rhinorrhea or epistaxis. Mucous membranes moist. Oropharynx without tonsillar hypertrophy exudate or other lesions. Bilateral TMs pearly bearden non-bulging NECK: Supple. No adenopathy or masses. CHEST: Clear to auscultation. No respiratory distress. No wheezes rales or rhonchi HEART: Regular rate and rhythm. No murmur heard. Normal peripher
[2021-06-24 18:53] LABS: Basophils Percent Auto 0.3 % (0.2-1.2); Eosinophils Absolute Auto 0.3 K/mm3 (0-0.3); Eosinophils Percent Auto 3.5 % (0-4.4); Hematocrit 41.8 % (37.0-47.0); Hemoglobin 13.5 g/dL (12.0-15.0); Immature Granulocyte Absolute 0.09 K/mm3 (0.00-0.031); Lymphocytes Absolute Auto 2.29 K/mm3 (0.9-3.2); Lymphocytes Percent Auto 26.6 % (18.3-44.2); Mean Corpuscular HGB Conc 32.3 g/dl (32-36); Mean Corpuscular Hemoglobin 29.2 pg (26-34); Mean Corpuscular Volume 90.3 fl (80-100); Mean Platelet Volume 8.7 fl (7.4-10.4); Monocytes Absolute Auto 0.6 K/mm3 (0.1-0.6); Monocytes Percent Auto 6.6 % (2.6-8.5); Neutrophils Absolute Auto 5.3 K/mm3 (1.3-6.7); Platelet Count Result 485 k/mm3 (150-375); Red Blood Count 4.63 M/mm3 (4.2-5.4); Red Cell Distribution Width 14.5 % (11.5-14.5); White Blood Count 8.6 K/mm3 (4.5-10.0)
[2021-06-24 18:57] LABS: Add Urine Microscopic? YES; Appearance Urine Cloudy (Clear); Bacteria Urine 2+ /hpf; Bilirubin Urine Negative (Negative); Blood Urine 1+ (Negative); Color Urine Yellow (Yellow); Glucose Urine UA Negative (Negative); Ketones Urine Negative (Negative); Leukocyte Esterase Ur 3+ LEU/UL (Negative); Mucus Urine Rare /lpf; Nitrate Urine Positive (Negative); Protein Urine Negative (Negative); RBC Urine 21-50 /hpf (0-2); Specific Grav Ur 1.009 (1.001-1.035); Squamous Epithelial Cell Urine Many /hpf (Few); Urobilinogen Urine Negative mg/dL (<2.0); WBC Urine >75 /hpf
[2021-06-24 19:01] LABS: INR 0.9; Prothrombin Time 12.1 Seconds (11.1-14.7)
[2021-06-24 19:02] LABS: Partial Thromboplastin Time 29.2 SECONDS (22.3-36.8)
[2021-06-24 19:11] LABS: Ethanol 50 mg/dL (<10)
[2021-06-24 19:12] LABS: Alanine Aminotransferase 82 U/L (4-35); Albumin Level 4.1 g/dL (3.5-5.1); Alkaline Phosphatase 158 U/L (38-126); Anion Gap 9 mmol/L (8-16); Aspartate Amino Transferase 142 U/L (14-36); Bilirubin,Total 0.3 mg/dL (0.2-1.3); Blood Urea Nitrogen 9 mg/dL (7-17); Calcium 9.1 mg/dL (8.4-10.2); Carbon Dioxide 23 mmol/L (22-30); Chloride 105 mmol/L (98-107); Estimated Glomerular Filt Rate > 60; Glucose 93 mg/dL (65-110); Lipase 45 U/L (23-300); Potassium 3.9 mmol/L (3.4-5.0); Sodium 137 mmol/L (137-145)
[2021-06-24] MEDS: SODIUM CHLORIDE 0.9% IV 1,000 ML 999 ML IV CONT (20:50)
[2021-06-24] MEDS: ONDANSETRON INJ 4 MG/2 ML VIAL IV PUSH (20:51)
[2021-06-24] MEDS: PANTOPRAZOLE SODIUM IV 40 MG VIAL IV PUSH (20:53)
--- NOTE | 2021-06-24 21:30 | PC.NURSE ---
pt voided again but missed cup
== END 2021-06-24 23:13 | disposition home or self-care (01) ==
PROVIDERS: Physician Assistant; Emergency Provider Family Medicine; PCP Family Medicine
DX: F10.10 Alcohol abuse, uncomplicated (principal); N30.00 Acute cystitis without hematuria; R74.01 Elevation of levels of liver transaminase levels; I10 Essential (primary) hypertension; E89.0 Postprocedural hypothyroidism; Z86.19 Personal history of other infectious and parasitic diseases; Z79.82 Long term (current) use of aspirin; F17.210 Nicotine dependence, cigarettes, uncomplicated; M19.072 Primary osteoarthritis, left ankle and foot; Y90.2 Blood alcohol level of 40-59 mg/100 ml
CPT/HCPCS: 36415; 70450; 73630; 80053; 80307; 81001; 81025; 83690; 85025; 85610; 85730; 87077; 87086; 87088; 87186; 96361; 96365; 96375; 99284; C9113; J0696; J2405; J7030

== ENCOUNTER 2021-09-04 10:23 | Outpatient (CLI) | payer OTHER, SELFPAY ==
[2021-09-04 10:59] LABS: Alanine Aminotransferase 37 U/L (6-35); Albumin Level 4.1 g/dL (3.5-5.1); Alkaline Phosphatase 145 U/L (38-126); Anion Gap 5 mmol/L (8-16); Aspartate Amino Transferase 35 U/L (14-36); Bilirubin,Total 0.5 mg/dL (0.2-1.3); Blood Urea Nitrogen 30 mg/dL (7-17); Calcium 9.2 mg/dL (8.4-10.2); Carbon Dioxide 24 mmol/L (22-30); Chloride 108 mmol/L (98-107); Estimated Glomerular Filt Rate > 60; Glucose 97 mg/dL (65-110); Potassium 4.7 mmol/L (3.4-5.0); Sodium 137 mmol/L (137-145)
== END 2021-09-04 10:24 | disposition home or self-care (01) ==
LOC: ANHLAB 10:26
PROVIDERS: PCP Family Medicine; Visit Provider Internal Medicine Gastroenterology
DX: B19.20 Unspecified viral hepatitis C without hepatic coma (principal)
CPT/HCPCS: 36415; 80053; 87522

== ENCOUNTER 2021-11-01 10:49 | Outpatient (CLI) | payer OTHER, SELFPAY ==
--- NOTE | ~2021-11-01 | US_ITS ---
US right upper quadrant INDICATION: Hepatitis C PROCEDURE: Realtime right upper abdominal ultrasound. COMPARISON: Ultrasound dated 11/04/2020 FINDINGS: The pancreas is normal without focal mass or pancreatic ductal dilation. Liver echotexture is increased, consistent with fatty infiltration. There is normal directional flow in the portal ve in. The gallbladder is normal without stones, gallbladder wall thickening or pericholecystic fluid. Comm on bile duct measures 4 mm. No sonographic Lange's sign. IMPRESSION: 1: Hepatic steatosis. Reviewed, dictated and finalized at location A. IMPRESSION: 1: Hepatic steatosis.
[2021-11-01 12:26] LABS: Pregnancy On Board Control Positive; Urine Pregnancy Test Negative
== END 2021-11-01 10:50 | disposition home or self-care (01) ==
PROVIDERS: PCP Family Medicine; Visit Provider Internal Medicine Gastroenterology
DX: B19.20 Unspecified viral hepatitis C without hepatic coma (principal); K76.0 Fatty (change of) liver, not elsewhere classified
CPT/HCPCS: 76705; 81025

== ENCOUNTER 2021-11-05 09:54 | Outpatient (CLI) | payer OTHER, SELFPAY ==
[2021-11-05 11:31] LABS: Hematocrit 40.8 % (37.0-47.0); Hemoglobin 13.5 g/dL (12.0-15.0); Mean Corpuscular HGB Conc 33.1 g/dl (32-36); Mean Corpuscular Hemoglobin 29.3 pg (26-34); Mean Corpuscular Volume 88.5 fl (80-100); Mean Platelet Volume 9.8 fl (7.4-10.4); Platelet Count Result 371 k/mm3 (150-375); Red Blood Count 4.61 M/mm3 (4.2-5.4); Red Cell Distribution Width 13.4 % (11.5-14.5); White Blood Count 7.8 K/mm3 (4.5-10.0)
[2021-11-05 14:57] LABS: Alanine Aminotransferase 39 U/L (6-35); Albumin Level 4.3 g/dL (3.5-5.1); Alkaline Phosphatase 133 U/L (38-126); Anion Gap 13 mmol/L (8-16); Aspartate Amino Transferase 32 U/L (14-36); Bilirubin,Total 0.6 mg/dL (0.2-1.3); Blood Urea Nitrogen 27 mg/dL (7-17); Calcium 10.1 mg/dL (8.4-10.2); Carbon Dioxide 16 mmol/L (22-30); Chloride 108 mmol/L (98-107); Estimated Glomerular Filt Rate > 60; Glucose 81 mg/dL (65-110); Potassium 4.7 mmol/L (3.4-5.0); Sodium 137 mmol/L (137-145)
[2021-11-05 14:59] LABS: Iron 139 ug/dL (37-170); Prothrombin Time 12.7 Seconds (11.1-14.7)
[2021-11-05 15:08] LABS: Percent Iron Saturation 42 % (20-50)
[2021-11-05 15:38] LABS: Hepatitis B Core IgM Result Negative (Negative)
[2021-11-05 15:43] LABS: HIV 1/2 Ab P24 Ag Result Negative (Negative)
[2021-11-08 11:56] LABS: Hepatitis A Antibody Total Nonreactive (Nonreactive)
[2021-11-08 22:20] LABS: Actin Antibody (IgG) <20 U (<20)
[2021-11-10 16:34] LABS: Alpha Fetoprotein Tumor Marker 2.4 ng/mL (<6.1)
[2021-11-10 18:12] LABS: ALT 26 U/L (6-29); Alpha-2-Macroglobulin 251 mg/dL (106-279); Apolipoprotein A1 193 mg/dL (101-198); Fibrosis Score 0.15; Fibrosis Stage F0; GGT 42 U/L (3-70); Haptoglobin 147 mg/dL (43-212); Necroinflammat Act Grade A0; Total Bilirubin 0.3 mg/dL (0.2-1.2)
== END 2021-11-05 09:55 | disposition home or self-care (01) ==
LOC: ANHLAB 09:56
PROVIDERS: Internal Medicine Gastroenterology; PCP Family Medicine; Visit Provider Family Medicine
DX: B18.2 Chronic viral hepatitis C (principal)
CPT/HCPCS: 36415; 80053; 81596; 82105; 82248; 82728; 83516; 83540; 83550; 84443; 85027; 85610; 86038; 86039; 86703; 86705; 86706; 86708; 87340; 87522; G0432

== ENCOUNTER 2022-01-08 08:52 | Outpatient (CLI) | payer OTHER, SELFPAY ==
[2022-01-08 10:52] LABS: HIV 1/2 Ab P24 Ag Result Negative (Negative)
[2022-01-10 14:25] LABS: Hepatitis B Surface Antigen Negative (Negative)
[2022-01-10 14:37] LABS: Hepatitis B Surface Anti Res Negative
== END 2022-01-08 08:53 | disposition home or self-care (01) ==
PROVIDERS: PCP Family Medicine; Visit Provider Internal Medicine Gastroenterology
DX: B19.20 Unspecified viral hepatitis C without hepatic coma (principal)
CPT/HCPCS: 36415; 86703; 86706; 87340; 87522; 87902; G0432

== ENCOUNTER 2022-01-28 08:37 | Outpatient (CLI) | payer OTHER, SELFPAY ==
[2022-01-31 16:42] LABS: Hepatitis C Viral RNA PCR 885000 IU/mL
[2022-02-02 13:40] LABS: HCV Genotype, LiPA 1a
== END 2022-01-28 08:38 | disposition home or self-care (01) ==
LOC: ANHLAB 08:39
PROVIDERS: PCP Family Medicine; Visit Provider Internal Medicine Gastroenterology
DX: K75.9 Inflammatory liver disease, unspecified (principal)
CPT/HCPCS: 36415; 87522

== ENCOUNTER 2022-07-18 10:49 | Outpatient (CLI) | payer OTHER, SELFPAY ==
--- NOTE | ~2022-07-18 | MM_ITS ---
EXAMINATION: MM screening yanely BI w ryan HISTORY: Screening mammogram TECHNIQUE: Craniocaudal and mediolateral oblique 3-D tomosynthesis images were obtained and synthetic 2-D images were generated. CAD analysis was submitted and interpreted. COMPARISON: 12/31/2020 Limited right breast ultrasound examination 12/21/2020 diagnostic right mammogram 10/31/2020, 10/28/2019 bilateral screening mammogram examinations BREAST PARENCHYMAL COMPOSITION: The breasts are almost entirely fatty. FINDINGS: Interval resolution 4 mm mass in the lower inner quadrant of right breast since 10/31/2020 bi lateral screening mammogram examination There is no evidence of suspicious mass, calcification, or ar chitectural distortion to suggest malignancy in either breast. There has been no suspicious interval change. IMPRESSION: 1. No mammographic evidence of malignancy. 2. Recommend routine screening mammography in one year. BI-RADS Category 1: Negative Reviewed, dictated and finalized at location A.
== END 2022-07-18 10:50 | disposition home or self-care (01) ==
LOC: ANHIMG 10:51
PROVIDERS: PCP Family Medicine; Visit Provider Family Medicine
DX: Z12.31 Encounter for screening mammogram for malignant neoplasm of breast (principal)
CPT/HCPCS: 77063; 77067

== ENCOUNTER 2022-07-28 10:00 | Outpatient (CLI) | payer OTHER, SELFPAY ==
[2022-07-28 10:47] LABS: Hematocrit 44.8 % (37.0-47.0); Hemoglobin 14.3 g/dL (12.0-15.0); Mean Corpuscular HGB Conc 31.9 g/dl (32-36); Mean Corpuscular Hemoglobin 29.9 pg (26-34); Mean Corpuscular Volume 93.7 fl (80-100); Mean Platelet Volume 9.6 fl (7.4-10.4); Platelet Count Result 369 k/mm3 (150-375); Red Blood Count 4.78 M/mm3 (4.2-5.4); Red Cell Distribution Width 13.6 % (11.5-14.5); White Blood Count 7.7 K/mm3 (4.5-10.0)
[2022-07-28 10:58] LABS: INR 0.8; Prothrombin Time 11.8 Seconds (11.1-14.7)
[2022-07-28 11:04] LABS: Alanine Aminotransferase 36 U/L (6-35); Albumin Level 4.6 g/dL (3.5-5.1); Alkaline Phosphatase 153 U/L (38-126); Anion Gap 11 mmol/L (8-16); Aspartate Amino Transferase 31 U/L (14-36); Bilirubin,Total 0.6 mg/dL (0.2-1.3); Blood Urea Nitrogen 20 mg/dL (7-17); Calcium 9.7 mg/dL (8.4-10.2); Carbon Dioxide 21 mmol/L (22-30); Chloride 105 mmol/L (98-107); Estimated Glomerular Filt Rate > 60; Glucose 86 mg/dL (65-110); Potassium 3.9 mmol/L (3.4-5.0); Sodium 137 mmol/L (137-145)
[2022-07-31 18:58] LABS: Hepatitis C RNA, Quant PCR <15 IU/mL
[2022-08-05 14:47] LABS: Alpha Fetoprotein Tumor Marker 2.3 ng/mL (<6.1)
== END 2022-07-28 10:01 | disposition home or self-care (01) ==
LOC: ANHLAB 10:04
PROVIDERS: PCP Family Medicine; Visit Provider Internal Medicine Gastroenterology
DX: B19.20 Unspecified viral hepatitis C without hepatic coma (principal)
CPT/HCPCS: 36415; 80053; 82105; 85027; 85610; 87522

== ENCOUNTER 2022-10-31 08:46 | Inpatient (IN) | payer OTHER, SELFPAY ==
[2022-10-31] VITALS (29 sets, daily range): BP systolic 52–139; BP diastolic 32–106; PULSE 85–99; RESP 12–22; TEMP 36.3–37.3; O2SAT 90–100; BMI 31.5
--- NOTE | ~2022-10-31 | US_ITS ---
EXAMINATION: US abdomen limited DATE: 11/01/2022 10:03 INDICATION: Right upper quadrant abdominal tenderness. TECHNIQUE: Multiple grayscale and Doppler ultrasound images of the abdomen were obtained. COMPARISON: CT abdomen and pelvis 10/31/2022 FINDINGS: The visualized portions of the head, body, and tail of the pancreas are normal. The liver i s normal without focal lesion. There is normal flow in main portal vein. The gallbladder is normal in size and contains sludge. No visible gallstones. No gallbladder wall thickening or sonographic Milena y sign. The common duct is normal and measures 3 mm. IMPRESSION: 1. No etiology for the patient's symptoms. Reviewed, dictated and finalized at location A.
--- NOTE | ~2022-10-31 | CT_ITS ---
EXAMINATION: CT brain wo con DATE: 10/31/2022 11:46 INDICATION: Altered mental status. TECHNIQUE: Computed tomography (CT) of the head was performed without intravenous contrast. The mA wa s adjusted according to patient size. Iterative reconstruction technique was employed. The dose-lengt h product was 832.33 mGy-cm. COMPARISON: Head CT 06/24/2021 FINDINGS: There is chronic encephalomalacia in the anterior and lateral aspects of left temporal lobe . There is no intracranial hemorrhage, acute infarction, or abnormal intracranial mass lesion. The ve ntricles are normal in size. The paranasal sinuses are clear. The mastoid air cells are normal. The o rbits are normal. IMPRESSION: 1. Chronic encephalomalacia in the anterior and lateral aspects of left temporal lobe. Reviewed, dictated and finalized at location A. IMPRESSION: 1. Chronic encephalomalacia in the anterior and lateral aspects of left tempora l lobe.
--- NOTE | ~2022-10-31 | XR_ITS ---
EXAMINATION: XR chest 1V portable DATE: 10/31/2022 11:18 INDICATION: Altered level of consciousness. TECHNIQUE: A single frontal view of the chest was obtained. COMPARISON: None. FINDINGS: A calcified right lung nodule is consistent with old granulomatous disease. There is a diff use interstitial pattern in the lungs, consistent mild pulmonary edema. No pleural effusion or pneumo thorax. Cardiomegaly is noted. IMPRESSION: 1. Mild pulmonary edema. 2. Cardiomegaly. Reviewed, dictated and finalized at location A.
--- NOTE | ~2022-10-31 | MR_ITS ---
EXAMINATION: MR brain/brain stem wo con DATE: 11/02/2022 12:24 INDICATION: Stroke. TECHNIQUE: Magnetic resonance imaging (MRI) of the brain and brainstem was performed without intraven ous contrast. COMPARISON: Head CT 10/31/2022 FINDINGS: There is chronic encephalomalacia in the anterior and lateral aspects of left temporal lobe and the anterior aspect of left frontal lobe. There are scattered areas of nonspecific increased T2- weighted signal intensity in the cerebral white matter and antonio. There is no intracranial hemorrhage, acute infarction, or abnormal intracranial mass lesion. The ventricles are normal in size. The paran barbara sinuses are clear. The orbits are normal. The mastoid air cells are normal. IMPRESSION: 1. Chronic encephalomalacia in the left frontal and temporal lobes in a distribution typical of traum atic brain injury. 2. Mild nonspecific cerebral white matter disease and pontine disease, which likely represents chroni c small vessel ischemic disease. Reviewed, dictated and finalized at location A. IMPRESSION: 1. Chronic encephalomalacia in the left frontal and temporal lobes in a distrib ution typical of traumatic brain injury. 2. Mild nonspecific cerebral white matter disease and pontine disease, which cipriano rodriguez represents chronic small vessel ischemic disease.
--- NOTE | ~2022-10-31 | CT_ITS ---
EXAMINATION: CT abdomen pelvis wo con DATE: 10/31/2022 11:47 INDICATION: Renal failure TECHNIQUE: Computed tomography (CT) of the abdomen and pelvis was performed without intravenous contr ast. Automated exposure control and iterative reconstruction technique were employed. The dose-length product was 1390.39 mGy-cm. COMPARISON: None FINDINGS: Calcified right lower lobe nodule consistent with old granulomatous disease. Heart size normal. No pe ricardial or pleural effusion. Evaluation the upper abdomen is mildly limited by some motion artifact . Focal hepatic steatosis at the ligamentum teres. Gallbladder, spleen, pancreas, bilateral adrenal g lands are normal. 2 mm or smaller nonobstructing stones at the lower poles of both kidneys. No no ure teral stones or hydronephrosis. There are few phleboliths in the pelvis. Bladder, uterus and bilatera l adnexa are normal. There is mild colonic diverticulosis with a sigmoid predominance. There is no a djacent inflammatory change to suggest diverticulitis. Small bowel and appendix are normal. Chronic L 5 spondylolysis with bilateral pars intra-articular is defects and unchanged 5 mm anterolisthesis L5 on S1. Mild thoracic and lumbar spondylosis. IMPRESSION: 1. Bilateral small nonobstructing renal stones. No ureteral stones or hydronephrosis. 2. Mild diverticulosis. 3. Chronic L5 spondylolysis with bilateral pars intra-articular is defects and 5 mm anterolisthesis o n S1. Reviewed, dictated and finalized at location B. IMPRESSION: 1. Bilateral small nonobstructing renal stones. No ureteral stones or hydroneph rosis. 2. Mild diverticulosis. 3. 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
--- NOTE | ~2022-10-31 | XR_ITS ---
EXAMINATION: XR chest 1V portable Exam Date/Time: 11/01/2022 16:35 CDT HISTORY: Drop in saturations Comparison: 10/31/2022. RESULT: Lines, tubes, and devices: None. Lungs and pleura: Persistent mild diffuse interstitial opacities. Minimal streaky bibasilar atelecta sis/scar. Calcified right lower lung granuloma Cardiomediastinal silhouette: Stable. Other: No acute osseous or upper abdominal finding. IMPRESSION: Stable mild interstitial edema. Reviewed, dictated and finalized at location K.
--- NOTE | 2022-10-31 08:53 | ECG_ITS ---
Measurements Intervals Gardner Rate: 85 P: 43 CA: 158 QRS: 51 QRSD: 92 T: 33 QT: 372 QTc: 445 Interpretive Statements SINUS RHYTHM WITH OCCASIONAL SUPRAVENTRICULAR PREMATURE COMPLEXES ABNORMAL ECG NO SIGNIFICANT CHANGES Electronically Signed On 10-31-2022 10:28:45 CDT by Sreedhar Marques M.D.
--- NOTE | 2022-10-31 08:55 | ED.AMS ---
HPI - Altered Mental Status General Chief Complaint: Altered Mental Status Stated Complaint: AMS Time Seen by Provider: 10/31/22 08:50 History of Present Illness HPI narrative: Pt presents with altered mental status per family report to EMS. This has been going on a few days. Pt does have history of substance abuse but per family but not acting like she does when she uses. Pt has no specific complaints. Related Data Home Medications Medication Instructions Recorded Confirmed lisinopril 40 mg tablet (Zestril) 40 mg PO DAILY 03/01/20 10/31/22 amlodipine 5 mg tablet 5 mg PO DAILY 10/03/20 10/31/22 baclofen 10 mg tablet 20 mg PO BID 10/03/20 10/31/22 ergocalciferol (vitamin D2) 1,250 1,250 mcg PO WEEKLY 10/03/20 10/31/22 mcg (50,000 unit) capsule hydroxyzine pamoate 50 mg capsule 50 mg PO TID PRN Anxiety 10/03/20 10/31/22 montelukast 10 mg tablet 10 mg PO DAILY 10/31/22 10/31/22 naproxen 500 mg tablet 500 mg PO BIDWM 10/31/22 10/31/22 Allergies Allergy/AdvReac Type Severity Reaction Status Date / Time No Known Allergies Allergy Verified 06/24/21 16:29 Review of Systems Review of Systems: All systems reviewed & are unremarkable except as noted in HPI and below ROS unobtainable: Yes unobtainable due to mental status PMFSH Past Medical History Medical History Alcoholism Liquor and beer daily Cholecystitis Depression Endocarditis (1992) Hepatitis C Hyperparathyroidism Hypertension Polysubstance abuse History of polysubstance abuse. Denies current drug use. Was using multiple illicit drugs about 6 months ago. 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 Polysubstance abuse surrogate decision maker: [place], spouse. Code status: Full code. Smoking packs per day: 0.5 Smoking cigarettes per day: 10.0 Years smoked: 32 Smoking pack-years: 16.00 Smoking status: Current every day smoker Tobacco type: cigarettes Second hand tobacco smoke exposure: Yes Alcohol intake: current Drinks per week: 28 Alcohol use details: 3 - 4 double shots of fireball a day though she has decreased her intake over the past 6 months or so. Substance use: former Substance use type: amphetamines Other substance usage details: Previous polysubstance abuse. Patient denies recent drug use. Lack of Transportation: No Lack of Food: Never True Current Housing: I Have Housing Concerned About Future Housing: Decline to Answer Difficulty Paying Gas/Electric Bills: Decline to Answer Difficulty Paying for Meds: Decline to Answer Currently Unemployed: Decline to Answer Education: Decline to Answer Difficulty w/ Childcare or Family Care: Decline to Answer Living arrangements: with family Additional living arrangements comments: Lives in [place] with her . 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
[2022-10-31] MEDS: SODIUM CHLORIDE 0.9% IV 1,000 ML 999 ML IV CONT (09:09)
[2022-10-31 09:36] LABS: Basophils Percent Auto 0.2 % (0.2-1.2); Eosinophils Percent Auto 0.1 % (0-4.4); Hematocrit 39.7 % (37.0-47.0); Hemoglobin 12.6 g/dL (12.0-15.0); Immature Granulocyte Percent A 0.6 % (0-0.5); Lymphocytes Absolute Auto 0.96 K/mm3 (0.9-3.2); Lymphocytes Percent Auto 5.5 % (18.3-44.2); Mean Corpuscular HGB Conc 31.7 g/dl (32-36); Mean Corpuscular Hemoglobin 30.4 pg (26-34); Mean Corpuscular Volume 95.9 fl (80-100); Mean Platelet Volume 9.6 fl (7.4-10.4); Monocytes Absolute Auto 1.3 K/mm3 (0.1-0.6); Monocytes Percent Auto 7.5 % (2.6-8.5); Neutrophils Absolute Auto 15.1 K/mm3 (1.3-6.7); Neutrophils Percent Auto 86.1 % (45.5-73.1); Platelet Count Result 412 k/mm3 (150-375); Red Blood Count 4.14 M/mm3 (4.2-5.4); Red Cell Distribution Width 14.2 % (11.5-14.5); White Blood Count 17.5 K/mm3 (4.5-10.0)
[2022-10-31 09:44] LABS: Acetaminophen < 10 ug/mL (10-30); Ammonia < 9 umol/L (9-30); Ethanol < 10 mg/dL (<10); Salicylate < 1.0 mg/dL (2-20)
[2022-10-31 09:46] LABS: INR 1.1; Lactic Acid Reflex 1.3 mmol/L (0.7-2.0); Prothrombin Time 15.1 Seconds (11.1-14.7)
[2022-10-31 09:48] LABS: Alanine Aminotransferase 43 U/L (6-35); Albumin Level 4.6 g/dL (3.5-5.1); Alkaline Phosphatase 144 U/L (38-126); Aspartate Amino Transferase 41 U/L (14-36); Bilirubin,Total 0.7 mg/dL (0.2-1.3); Calcium 8.6 mg/dL (8.4-10.2); Carbon Dioxide < 5 mmol/L (22-30); Chloride 108 mmol/L (98-107); Estimated CRCL calculation 7 ml/min; Estimated Glomerular Filt Rate 4; Glucose 56 mg/dL (65-110); Potassium 6.4 mmol/L (3.4-5.0); Sodium 141 mmol/L (137-145)
[2022-10-31 09:51] LABS: Appearance Urine Cloudy (Clear); Bacteria Urine 4+ /hpf; Bilirubin Urine Negative (Negative); Color Urine Dark Yellow (Yellow); Glucose Urine UA Negative (Negative); Ketones Urine Trace mg/dL (Negative); Leukocyte Esterase Ur 2+ LEU/UL (Negative); Need Manual Microscopic Reviewed; Nitrate Urine Negative (Negative); Non Pathogenic Casts >20; Protein Urine 1+ mg/dL (Negative); RBC Urine 0-2 /hpf (0-2); Squamous Epithelial Cell Urine Occasional /hpf (Few); WBC Urine >100 /hpf
[2022-10-31 09:52] LABS: Add Urine Microscopic? YES; Barbiturate Screen Urine Negative (Negative); Benzodiazepines Screen Urine Negative (Negative)
--- NOTE | 2022-10-31 09:52 | PC.NURSE ---
food tray ordered at this time
[2022-10-31 09:53] LABS: Cannabinoid Screen Urine Negative (Negative); Cocaine Screen Urine Negative (Negative); Methadone Screen Urine Negative (Negative); Opiate Screen Urine Negative (Negative); Phencyclidine Screen Urine Negative (Negative)
[2022-10-31 09:56] LABS: Blood Urea Nitrogen 138 mg/dL (7-17)
[2022-10-31 09:57] LABS: Creatine Kinase 1030 U/L (30-135); Troponin I < 0.012 ng/mL (0.000-0.034)
[2022-10-31] MEDS: DEXTROSE 10% 1,000 ML 50 ML IV CONT (10:05)
[2022-10-31 10:08] LABS: Amphetamine Screen Urine Positive (Negative)
[2022-10-31 10:16] LABS: Thyroid Stimulating Hormone 0.121 uIU/mL (0.465-4.680)
[2022-10-31] MEDS: DEXTROSE 50% 25 GM/50 ML SYRINGE ×2 (10:24→10:42)
[2022-10-31] MEDS: CALCIUM GLUC 1,000 MG/NS 50 ML 1,000 MG/50 ML BAG 100 MG IVPB (10:26)
[2022-10-31] MEDS: levoFLOXacin 500 MG/D5W 100 ML 500 MG/100 ML BAG 100 MG IVPB (10:27)
[2022-10-31 10:28] LABS: Glucose Point of Care < 20 mg/dl (65-105)
[2022-10-31 10:35] LABS: Glucose Point of Care 47 mg/dl (65-105)
--- NOTE | 2022-10-31 11:02 | PC.NURSE ---
ICU physician arrives and orders for another 1000ml 0.9% NSS bolus. RN repeats order and confirms. RN starts the NSS wide open into pt's left AC with D10.
[2022-10-31 11:03] LABS: Alveolar/Arterial O2 Gradient 15.3 mmHg; Base Excess ABG -17.3 mEq/l (+/-2.0); Fractional Inspired Oxygen 21 %; HCO3 ABG 9.1 mEq/l (22.0-26.0); Oxygen Content ABG 16.2 %vol (16.0-22.0); Oxygen Saturation ABG 96.7 % (95.0-100.0); Oxyhemoglobin 95.2 % THb (90.0-100.0); PCO2 ABG 24.3 mmHg (35.0-45.0); PO2 ABG 105.3 mmHg (80.0-100.0); PO2 FiO2 Ratio Arterial Blood 5.01 %
[2022-10-31 11:06] LABS: Device ROOM AIR; Modified Allen's Test Pass; Site Drawn LEFT RADIAL; pH ABG 7.193 (7.350-7.450)
[2022-10-31 11:06] LABS: Glucose Point of Care 248 mg/dl (65-105)
[2022-10-31] MEDS: SODIUM BICARBONATE 8.4% 50 MEQ/50 ML SYRINGE IV PUSH ×2 (11:08→11:24)
--- NOTE | 2022-10-31 11:26 | WPDCNINT ---
Assessment and Plan Assessment and plan (1) DIXON (acute kidney injury): Code(s): N17.9 - Acute kidney failure, unspecified Status: Acute Assessment and Plan: Patient presented acute kidney injury with creatinine 9.1 and BUN of 138. Patient admitted drug abuse with methamphetamine, [id number] naproxen use, has elevated CK suggestive of rhabdomyolysis which may be complimented by dehydration making it likely multifactorial renal failure Nephrology has been consulted Patient is receiving IV fluids bolus which will be followed IV fluids with bicarb. Check urine electrolytes CT abdomen pelvis is pending to rule out any obstruction stone or hydronephrosis Monitor urine output electrolytes and creatinine (2) Acute hyperkalemia: Code(s): E87.5 - Hyperkalemia Status: Acute Assessment and Plan: Patient was given calcium, and is receiving sodium bicarbonate IV push Patient was not given insulin due to hypoglycemia I will order Lokelma and recheck BMP later (3) Rhabdomyolysis: Code(s): M62.82 - Rhabdomyolysis Status: Acute Assessment and Plan: See above (4) Metabolic acidosis: Code(s): E87.20 - Acidosis, unspecified Status: Acute Assessment and Plan: See above (5) UTI (urinary tract infection): Code(s): N39.0 - Urinary tract infection, site not specified Status: Acute Assessment and Plan: Urine and blood cultures IV Levaquin CT scan pending (6) Encephalopathy: Code(s): G93.40 - Encephalopathy, unspecified Status: Acute Assessment and Plan: Likely toxic encephalopathy very to drug abuse which may have been worsened by uremia Head CT pending Nonfocal exam Monitor (7) Hypoglycemia: Code(s): E16.2 - Hypoglycemia, unspecified Status: Acute Assessment and Plan: Patient was given D50 IV push in the ER and was started on D10 infusion. Blood glucose has improved. I will change to D5 with sodium bicarbonate and continue q.1 hour Accu-Cheks. Will wean off dextrose depending on blood sugar levels (8) Hepatitis C: Qualifiers: Hepatic coma status: without hepatic coma Viral hepatitis chronicity: unspecified Qualified Code(s): B19.20 - Unspecified viral hepatitis C without hepatic coma Code(s): B19.20 - Unspecified viral hepatitis C without hepatic coma Status: Acute Assessment and Plan: Mildly elevated liver enzymes. Hold statin (9) Hypotension: Code(s): I95.9 - Hypotension, unspecified Status: Acute Assessment and Plan: Likely secondary to dehydration, hypovolemia, acidosis Lactic acid level was normal Blood pressure improved with IV fluids and sodium bicarbonate Monitor (10) Polysubstance abuse: Code(s): F19.10 - Other psychoactive substance abuse, uncomplicated Status: Acute Assessment and Plan: Patient admits to alcohol abuse smoking and methamphetamine abuse Patient admits to drinking whiskey fireball every day. Absolute denies drinking antifreeze or any other adulterated alcohol Patient not in a condition for counseling at this time Monitor Plan DVT prophylaxis -Lovenox Nutrition -renal diet Code Status - Full Code Total Critical Care Time - 40 minutes Due to a high probability of clinically significant, life threatening deterioration, the patient required my highest level of preparedness to intervene emergently and I personally spent this critical care time directly and personally managing the patient. This critical care time included obtaining a history; examining the patient; pulse oximetry; ordering and review of studies; arranging urgent treatment with development of a management plan; evaluation of patient's response to treatment; frequent reassessment; and discussions with other providers. It was exclusive of separately billable procedures and treating other patients and teaching time. Please see Assessment and Pl
[2022-10-31 11:56] LABS: Glucose Point of Care 152 mg/dl (65-105)
--- NOTE | 2022-10-31 12:00 | ADMGEN ---
This patient, Missy Montgomery, was admitted to Intensive Care Unit-1. Patient/family oriented to hospital policies and general routines including ID bracelet, bed and alarms, visiting hours, pain management, procedures, bathroom and other care routines, personal items, smoking policy, room service/diet, and visiting hours. Information on how to activate the Rapid Response Team has been discussed. Patient/Family are encouraged to report perceived risks to care and to ask questions if they do not understand what they are told or what they should do.
--- NOTE | 2022-10-31 12:26 | PM.CNNEP ---
Assessment and Plan Assessment and plan (1) DIXON (acute kidney injury): Code(s): N17.9 - Acute kidney failure, unspecified Status: Acute Assessment and Plan: as noted by admission labs suspect multifactorial etiology: prerenal factors NSAID use methamphetamine use elevated CPK/rhabomyolysis hypotension check urine electrolytes and eosinophils follow trend CPK CT imaging noted agree with bicarb IVFs follow repeat labs and UOP (2) Acute hyperkalemia: Code(s): E87.5 - Hyperkalemia Status: Acute Assessment and Plan: due to DIXON/ARF medical management in ER [facility] and IVP bicarb on admission to follow trend of K+ (3) Metabolic acidosis: Code(s): E87.20 - Acidosis, unspecified Status: Acute Assessment and Plan: due to DIXON/ARF lactic acid normal attempting to compensate with bicarb IVFs follow repeat chemistry (4) UTI (urinary tract infection): Code(s): N39.0 - Urinary tract infection, site not specified Status: Acute Assessment and Plan: admission UA suggestive follow urine/blood cultures on empiric antibiotics (5) Encephalopathy: Code(s): G93.40 - Encephalopathy, unspecified Status: Acute Assessment and Plan: likely due to combination of drug abuse and possible uremia Head CT scan negative follow mentation (6) Hypotension: Code(s): I95.9 - Hypotension, unspecified Status: Acute Assessment and Plan: clinically better with IVF resuscitation suspect precipitated by volume depletion and acidosis follow BP readings vasopressors if unresponsive to IVFs I will continue to follow the patient with you while she remains hospitalized and make further recommendations as deemed necessary. Thank you for allowing me to participate in care of this patient. History of Present Illness Reason for Consult Consult date: 10/31/22 Reason for consult: acute renal failure and hyperkalemia Chief Complaint Chief complaint: Renal Failure/Sepsis History of Present Illness Narrative: The patient is a 57-year-old female with a past medical history as outlined below who was brought in by EMS at the request of family in for further evaluation of altered mental status. The exact specifics with regard to her altered mental status are not clear to me but apparently her family thought that she was not acting like her usual self. She is known to have a history of polysubstance abuse but apparently her behavior did not seem to be a correlate with previous instances of drug abuse. As the symptoms apparently had been going on for the past 1-2 days if not longer and seem to be getting progressively worse, her family called 911 and EMS subsequently transported her to [facility] ER for further assessment. Workup and evaluation emergency room demonstrated the patient to be hemodynamically stable but she was apparently quite fidgety and was difficult to get much history from the patient. However, on review of the ER records, her blood pressure then dropped into the 70s to 80s systolic requiring IV fluid resuscitation. Furthermore, when she was able to provide any history, she would go off on tangents on subject matter that was not asked about. She reports that she had pain all over her body and has been taking [id number] Naprosyn for treatment of this. She also admits to using methamphetamines about 3 or 4 days ago as well. Furthermore, she or reports daily alcohol intake as well but the details of how much are on clear. Routine blood tests were significant for severe acute kidney injury/renal failure with associated hyperkalemia, hypoglycemia, and severe metabolic acidosis. She received medical management for hyperkalemia and was started on aggressive IV fluid resuscitation. Her urine drug screen confirmed her recent use of methamphetamines. She denies any other illicit subst
--- NOTE | 2022-10-31 12:26 | P.CONNP_ITS ---
Assessment and Plan Assessment and plan (1) DIXON (acute kidney injury): Code(s): N17.9 - Acute kidney failure, unspecified Status: Acute Assessment and Plan: * as noted by admission labs * suspect multifactorial etiology: * prerenal factors * NSAID use * methamphetamine use * elevated CPK/rhabomyolysis * hypotension * check urine electrolytes and eosinophils * follow trend CPK * CT imaging noted * agree with bicarb IVFs * follow repeat labs and UOP (2) Acute hyperkalemia: Code(s): E87.5 - Hyperkalemia Status: Acute Assessment and Plan: * due to DIXON/ARF * medical management in ER * lokelma and IVP bicarb on admission to IU * follow trend of K+ (3) Metabolic acidosis: Code(s): E87.20 - Acidosis, unspecified Status: Acute Assessment and Plan: * due to DIXON/ARF * lactic acid normal * attempting to compensate with bicarb IVFs * follow repeat chemistry (4) UTI (urinary tract infection): Code(s): N39.0 - Urinary tract infection, site not specified Status: Acute Assessment and Plan: * admission UA suggestive * follow urine/blood cultures * on empiric antibiotics (5) Encephalopathy: Code(s): G93.40 - Encephalopathy, unspecified Status: Acute Assessment and Plan: * likely due to combination of drug abuse and possible uremia * Head CT scan negative * follow mentation (6) Hypotension: Code(s): I95.9 - Hypotension, unspecified Status: Acute Assessment and Plan: * clinically better with IVF resuscitation * suspect precipitated by volume depletion and acidosis * follow BP readings * vasopressors if unresponsive to IVFs I will continue to follow the patient with you while she remains hospitalized and make further recommendations as deemed necessary. Thank you for allowing me to participate in care of this patient. History of Present Illness Reason for Consult Consult date: 10/31/22 Reason for consult: acute renal failure and hyperkalemia Chief Complaint Chief complaint: Renal Failure/Sepsis History of Present Illness Narrative: The patient is a 57-year-old female with a past medical history as outlined below who was brought in by EMS at the request of family in for further evaluation of altered mental status. The exact specifics with regard to her altered mental status are not clear to me but apparently her family thought that she was not acting like her usual self. She is known to have a history of polysubstance abuse but apparently her behavior did not seem to be a correlate with previous instances of drug abuse. As the symptoms apparently had been going on for the past 1-2 days if not longer and seem to be getting progressively worse, her family called 911 and EMS subsequently transported her to [facility] ER for further assessment. Workup and evaluation emergency room demonstrated the patient to be hemodynamic ally stable but she was apparently quite fidgety and was difficult to get much history from the patient. However, on review of the ER records, her blood pressure then dropped into the 70s to 80s systolic requiring IV fluid resuscitation. Furthermore, when she was able to provide any history, she would go off on tangents on subject matter that was not asked about. She reports that she had pain all over her body and has been taking [id number] Naprosyn for treatment of this. She also admits to using methamphetamines about 3 or 4 days ago as well. Furthermore, she or reports daily al
[2022-10-31] MEDS: SODIUM BICARBONATE 8.4% 150 MEQ in DEXTROSE 5% 1,000 ML 950 ML IV CONT ×2 (12:27→20:35)
[2022-10-31] MEDS: SODIUM ZIRCONIUM CYCLOSILICATE 10 GM POWD.PACK PO (12:27)
--- NOTE | 2022-10-31 12:53 | PM.IMHP ---
H&P: HPI History of Present Illness Date/Time: 10/31/22 12:53 Chief Complaint: Altered mental status Narrative: This is a 57-year-old female patient was brought to the emergency department via family. The patient has been confused for few days. She does have a history of substance abuse according to her family. The patient is a very poor historian. She is having difficulty focusing on any the questions that I ask her. The patient tells me that she has been using methamphetamines and that she has been awake for 4 days. The patient stated that she does not inject the drug but she snorted it. The patient stated that she is getting older and feels tired and never she felt the that urge to use methamphetamines. She stated that she has been taking care of her mother and has been difficult for her. Her white count is 17.5. Patient has severe metabolic acidosis with a pH of 7.193, CO2 24.3, PO2 105.3, and bicarb 9.1. Her initial potassium was 6.4 now it is 4.3. Chloride was 1 weight now 112. BUN was 138 now 114. Creatinine 9.10 now 6.10. Her glucose was 56 now 104 on her lab work. However her 0.8 care capillary glucose was 152 and then 217. AST is 41, ALT is 43, and alkaline phosphatase 144. Total creatinine kinase 1030. Her TSH is 0.121 and a free T4 1.5 and the T3 is pending. Urinalysis shows 2+ leukocyte esterase with greater than 100 wbc's. 4+ urine bacteria. Patient is a psychology screen was positive for urine amphetamines. Chest x-ray was read as mild pulmonary edema. Cardiomegaly. Head CT was read as the following. Chronic encephalomalacia in the anterior and lateral aspects of left temporal lobe. Abdominal pelvis CT read as a following1. Bilateral small nonobstructing renal stones. No ureteral stones or hydronephrosis. 2. Mild diverticulosis. 3. 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 The patient was placed in ICU in the shirt turner has been consulted. The patient was given a dose of Rocephin, Levaquin, calcium gluconate, D50, sodium bicarb, Lokelma, glucagon, sodium bicarb, and started on a bicarb drip. The patient was very restless and having difficulty focusing on the questions. The patient is being admitted to ICU as inpatient status on 10/31/2022. Review of Systems Review of Systems: All systems reviewed & are unremarkable except as noted in HPI and below Constitutional: Constitutional: Reports as per HPI and Reports no additional constitutional complaints Eyes: Eyes: Reports as per HPI and Reports no additional eye complaints ENT: Reports system reviewed and no additional complaints, except as documented and Reports Normal hearing present Cardiovascular: Cardiovascular: Reports no additional cardiovascular complaints Respiratory: Respiratory: Reports no additional respiratory complaints and Reports no additional respiratory complaints Gastrointestinal: Gastrointestinal: Reports as per HPI and Reports no additional gastrointestinal complaints Musculoskeletal: Musculoskeletal: Reports no additional musculoskeletal complaints Integumentary/Breasts: Skin/Breast: Reports system reviewed and no additional complaints, except as docu and Reports as per HPI Neurologic: Reports system reviewed and no additional complaints, except as documented, Reports as per HPI and Reports Normal hearing present Psychiatric: Psychiatric: Reports no additional psychiatric complaints and Reports as per HPI Endocrine: Endocrine: Reports no additional endocrine complaints Hematologic/Lymphatic: Hematologic/Lymphatic: Reports no additional hematologic/lymphatic complaints Allergic/Immunologic: Allergic/Immunologic: Reports no additional allergic/immunologic complaints PMFSH Past Medical History Medical History Alcoholism Liquor and beer daily Cholecystitis Depression Endocarditis (1992) Hepatitis C Hyperparathyroidi
[2022-10-31 13:12] LABS: Glucose Point of Care 134 mg/dl (65-105)
[2022-10-31 13:17] LABS: Glucose Point of Care 81 mg/dl (65-105)
[2022-10-31 14:00] LABS: Glucose Point of Care 99 mg/dl (65-105)
[2022-10-31 14:23] LABS: Anion Gap 19 mmol/L (8-16); Blood Urea Nitrogen 114 mg/dL (7-17); Calcium 7.4 mg/dL (8.4-10.2); Carbon Dioxide 12 mmol/L (22-30); Chloride 112 mmol/L (98-107); Estimated CRCL calculation 11 ml/min; Estimated Glomerular Filt Rate 7; Glucose 104 mg/dL (65-110); Potassium 4.3 mmol/L (3.4-5.0); Sodium 143 mmol/L (137-145)
[2022-10-31 15:02] LABS: Glucose Point of Care 122 mg/dl (65-105)
[2022-10-31] MEDS: GLUCAGON FOR INJ 1 MG VIAL IM (15:11)
[2022-10-31 16:02] LABS: Glucose Point of Care 217 mg/dl (65-105)
[2022-10-31 17:49] LABS: Glucose Point of Care 110 mg/dl (65-105)
[2022-10-31 18:53] LABS: Creatine Kinase 939 U/L (30-135)
[2022-10-31 18:58] LABS: Glucose Point of Care 109 mg/dl (65-105)
[2022-10-31 20:07] LABS: Glucose Point of Care 103 mg/dl (65-105)
[2022-10-31 21:38] LABS: Glucose Point of Care 109 mg/dl (65-105)
[2022-10-31 22:25] LABS: Glucose Point of Care 84 mg/dl (65-105)
[2022-10-31 23:50] LABS: Glucose Point of Care 97 mg/dl (65-105)
[2022-11-01] VITALS (11 sets, daily range): BP systolic 101–132; BP diastolic 63–84; PULSE 79–94; RESP 14–19; TEMP 36.6–37.5; O2SAT 91–99
--- NOTE | 2022-11-01 | ECHO_ITS ---
Patient Info Name: Missy Montgomery Age: 57 years : 1965 Gender: Female Ht: 67 in Wt: 201 lbs BSA: 2.11 m2 HR: 79 bpm BP: 106 / 66 mmHg Heart Rhythm: Sinus Rhythm Technical Quality: Fair Exam Date: 11/01/2022 7:47 AM Exam Location: [facility] Pulmonary Patient Status: Inpatient Admit Date: 10/31/2022 Staff Ordering Physician: Nhi Moreira NP Curriculum And Instruction Director: Aarti Valera RDCS Attending Provider: Param Santamaria MD Referring Physician: Lillie SAUCEDO; Exam Type: CA echo doppler color flow Study Info Indications - Cardiomegaly Complete two-dimensional, color flow and Doppler transthoracic echocardiogram is performed. Summary 1. Complete two-dimensional, color flow and Doppler transthoracic echocardiogram is performed. 2. Normal left ventricular size with hyperdynamic systolic contractility. 3. No significant valvular abnormality. 4. Grade 1 diastolic noncompliance. 5. Modestly enlarged left atrium. Left Ventricle Left ventricular chamber dimension is normal. Left ventricular systolic function is hyperdynamic, estimated at >70%. The left ventricular diastolic function is grade I diastolic dysfunction. Right Ventricle Right ventricular chamber dimension is normal. Left Atria Left atrial chamber dimension is mildly enlarged. Right Atria Right atrial chamber dimension is normal. Aortic Valve The aortic valve is trileaflet. Pulmonic Valve The pulmonic valve is not well visualized. Mitral Valve The mitral valve has normal leaflets. Tricuspid Valve The tricuspid valve leaflets are normal. Pericardium/Pleural The pericardium appears normal. Aorta The aortic root size at the sinus of Valsalva is normal. Left Ventricular Outflow Tract Name Value Normal LVOT 2D LVOT Diameter 2.0 cm LVOT Doppler LVOT Peak Gradient 15 mmHg LVOT Mean Gradient 7 mmHg LVOT VTI 29 cm LVOT VTI/AV VTI Ratio 0.9 LVOT Stroke Volume 88 ml LVOT CO 8.2 l/min LVOT CI 3.9 l/min/m2 Pulmonic Valve Name Value Normal RVOT Doppler RVOT Peak Gradient 5 mmHg PV Doppler PV Peak Gradient 9 mmHg Mitral Valve Name Value Normal MV Doppler MV [place] 909 cm/s2 MV PHT 37 ms MV Area (PHT) 6.0 cm2 4.0-5.0 MV Diastolic Function
[2022-11-01 01:47] LABS: Glucose Point of Care 110 mg/dl (65-105)
[2022-11-01] MEDS: SODIUM BICARBONATE 8.4% 150 MEQ in DEXTROSE 5% 1,000 ML 950 ML IV CONT (03:05)
[2022-11-01 03:53] LABS: Basophils Percent Auto 0.2 % (0.2-1.2); Eosinophils Percent Auto 0.4 % (0-4.4); Hematocrit 35.3 % (37.0-47.0); Hemoglobin 11.8 g/dL (12.0-15.0); Immature Granulocyte Absolute 0.04 K/mm3 (0.00-0.031); Immature Granulocyte Percent A 0.4 % (0-0.5); Lymphocytes Absolute Auto 1.23 K/mm3 (0.9-3.2); Mean Corpuscular HGB Conc 33.4 g/dl (32-36); Mean Corpuscular Hemoglobin 29.8 pg (26-34); Mean Corpuscular Volume 89.1 fl (80-100); Mean Platelet Volume 9.2 fl (7.4-10.4); Monocytes Absolute Auto 1.1 K/mm3 (0.1-0.6); Monocytes Percent Auto 11.2 % (2.6-8.5); Neutrophils Absolute Auto 7.1 K/mm3 (1.3-6.7); Neutrophils Percent Auto 74.8 % (45.5-73.1); Platelet Count Result 377 k/mm3 (150-375); Red Blood Count 3.96 M/mm3 (4.2-5.4); Red Cell Distribution Width 13.4 % (11.5-14.5); White Blood Count 9.5 K/mm3 (4.5-10.0)
[2022-11-01 04:02] LABS: Glucose Point of Care 105 mg/dl (65-105)
[2022-11-01 04:02] LABS: Glucose Point of Care 123 mg/dl (65-105)
[2022-11-01 04:09] LABS: Alanine Aminotransferase 38 U/L (6-35); Albumin Level 3.8 g/dL (3.5-5.1); Alkaline Phosphatase 131 U/L (38-126); Anion Gap 8 mmol/L (8-16); Aspartate Amino Transferase 33 U/L (14-36); Bilirubin,Total 0.9 mg/dL (0.2-1.3); Blood Urea Nitrogen 82 mg/dL (7-17); Calcium 7.9 mg/dL (8.4-10.2); Carbon Dioxide 27 mmol/L (22-30); Chloride 110 mmol/L (98-107); Creatine Kinase 576 U/L (30-135); Estimated CRCL calculation 28 ml/min; Estimated Glomerular Filt Rate 22; Glucose 119 mg/dL (65-110); Magnesium 2.3 mg/dL (1.6-2.3); Phosphorus 4.1 mg/dL (2.5-4.5); Potassium 3.4 mmol/L (3.4-5.0); Sodium 145 mmol/L (137-145)
[2022-11-01 06:11] LABS: Glucose Point of Care 112 mg/dl (65-105)
[2022-11-01] MEDS: HALOPERIDOL LACTATE 5 MG/ML VIAL 2 MG IV PUSH (06:11)
[2022-11-01 07:01] LABS: Glucose Point of Care 117 mg/dl (65-105)
[2022-11-01 07:40] LABS: Glucose Point of Care 144 mg/dl (65-105)
[2022-11-01] MEDS: THIAMINE HCL 200 MG/2 ML VIAL 100 MG IV PUSH (08:01)
[2022-11-01] MEDS: ENOXAPARIN 30 MG/0.3 ML SYRINGE SUB-Q (08:01)
[2022-11-01] MEDS: LACTATED RINGERS 1,000 ML 100 ML IV CONT (08:01)
[2022-11-01] MEDS: FOLIC ACID 1 MG/0.2 ML INJ IV PUSH (08:01)
--- NOTE | 2022-11-01 08:54 | WPDINTPN ---
Progress Note: A&P Assessment and Plan (1) DIXON (acute kidney injury): Code(s): N17.9 - Acute kidney failure, unspecified Status: Acute Assessment and Plan: 10/31: Patient presented with acute kidney injury with creatinine 9.1 and BUN of 138. Patient admitted drug abuse with methamphetamine, notg-zil-aqgbwbv naproxen use, has elevated CK suggestive of rhabdomyolysis which may be complimented by dehydration making it likely multifactorial renal failure Appreciate Nephrology evaluation recommendation Was will discontinue bicarb infusion as CO2 is elevated -switch IV fluids to LR 100 mL/hours. -CT scan of the abdomen and pelvis showed bilateral small non obstructing renal stones, no ureteral stones or hydronephrosis. -patient with increased urine output and improvement in her renal function -Monitor urine output electrolytes and creatinine (2) Acute hyperkalemia: Code(s): E87.5 - Hyperkalemia Status: Acute Assessment and Plan: Resolved with treatment (3) Rhabdomyolysis: Code(s): M62.82 - Rhabdomyolysis Status: Acute Assessment and Plan: CK trending down, continue IV fluids (4) Metabolic acidosis: Code(s): E87.20 - Acidosis, unspecified Status: Acute Assessment and Plan: Resolved (5) UTI (urinary tract infection): Code(s): N39.0 - Urinary tract infection, site not specified Status: Acute Assessment and Plan: 10/31:Urine culture pending 10/31: Blood culture growing Gram-negative bacilli /2 bottle Continue IV Levaquin 10/31: Scan of the abdomen pelvis without contrast 1. Bilateral small nonobstructing renal stones. No ureteral stones or hydronephrosis. 2. Mild diverticulosis. 3. 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 (6) Encephalopathy: Code(s): G93.40 - Encephalopathy, unspecified Status: Acute Assessment and Plan: Likely toxic encephalopathy secondary drug abuse, acidosis, uremia 10/31; heat CT : Chronic encephalomalacia in the anterior and lateral aspects of left temporal lobe. Neurology consulted Monitor (7) Hypoglycemia: Code(s): E16.2 - Hypoglycemia, unspecified Status: Acute Assessment and Plan: resolved, off dextrose Continue Accu-Cheks (8) Hepatitis C: Qualifiers: Viral hepatitis chronicity: unspecified Hepatic coma status: without hepatic coma Qualified Code(s): B19.20 - Unspecified viral hepatitis C without hepatic coma Code(s): B19.20 - Unspecified viral hepatitis C without hepatic coma Status: Acute Assessment and Plan: Mildly elevated liver enzymes. Check right upper quadrant ultrasound Hold statin (9) Hypotension: Code(s): I95.9 - Hypotension, unspecified Status: Acute Assessment and Plan: RESOLVED Likely secondary to dehydration, hypovolemia, acidosis Lactic acid level was normal Blood pressure improved with IV fluids and sodium bicarbonate Monitor (10) Polysubstance abuse: Code(s): F19.10 - Other psychoactive substance abuse, uncomplicated Status: Acute Assessment and Plan: Patient admits to alcohol abuse smoking and methamphetamine abuse Patient admits to drinking whiskey fireball every day. Absolutely denies drinking antifreeze or any other adulterated alcohol -will nurses' association counselor patient when she is more appropriate -continue folic acid and thiamine Plan DVT prophylaxis -Lovenox Nutrition -renal diet Code Status - Full Code Total Critical Care Time - 32 minutes Due to a high probability of clinically significant, life threatening deterioration, the patient required my highest level of preparedness to intervene emergently and I personally spent this critical care time directly and personally managing the patient. This critical care time included obtaining a history; examining the patient; pulse oximetry; ordering and review o
--- NOTE | 2022-11-01 09:01 | PM.PNNEP ---
Progress Note: A&P Assessment and Plan (1) DIXON (acute kidney injury): Code(s): N17.9 - Acute kidney failure, unspecified Status: Acute Assessment and Plan: improvement noted suspect multifactorial etiology: prerenal factors NSAID use methamphetamine use elevated CPK/rhabomyolysis hypotension infection (?) -- noted positive blood cultures evaluation to date: CT of abdomen w/o obstruction urine electrolytes non-prerena; urine eosinophils negative CPK mildly elevated but downtrending IVFs transitioned to LR (from bicarb fluids) follow repeat labs and UOP (2) Acute hyperkalemia: Code(s): E87.5 - Hyperkalemia Status: Acute Assessment and Plan: improving due to DIXON/ARF medical management in ER [facility] and IVP bicarb on admission to ICU follow trend of K+ (3) Metabolic acidosis: Code(s): E87.20 - Acidosis, unspecified Status: Acute Assessment and Plan: due to DIXON/ARF lactic acid normal corrected with bicarbonate fluids -- off currently (4) UTI (urinary tract infection): Code(s): N39.0 - Urinary tract infection, site not specified Status: Acute Assessment and Plan: admission UA suggestive follow urine/blood cultures on empiric antibiotics (5) Encephalopathy: Code(s): G93.40 - Encephalopathy, unspecified Status: Acute Assessment and Plan: likely due to combination of drug abuse and possible uremia Head CT scan negative follow mentation (6) Hypotension: Code(s): I95.9 - Hypotension, unspecified Status: Acute Assessment and Plan: clinically better with IVF resuscitation suspect precipitated by volume depletion and acidosis follow BP readings Discussed case with Dr. Jacobsen. Will continue to follow. Subjective Date/time seen: 11/01/22 09:01 Interval history: Follow-up for acute kidney injury/acute renal failure, hyperkalemia, and metabolic acidosis. Repeat labs yesterday and this morning show improvement in renal function, potassium, and acidosis; better hemodynamics noted as well; CPK levels better as well; no other acute complaints voiced. Exam Narrative: General: middle aged Caucasia female in NAD Heart: normal S1 and S2; no rub Lungs: clear to auscultation Abdomen: soft, nontender, nondistended, positive bowel sounds Extremities: no cyanosis or clubbing; no edema Skin: warm and dry Objective Data Vital Signs Vital Signs: Vital Signs Temp Pulse Pulse Resp BP Pulse Ox O2 Del Method 11/01/22 08:00 92 19 94 Room Air 11/01/22 08:00 92 11/01/22 08:00 92 11/01/22 07:46 98.5 F 92 18 111/63 93 11/01/22 06:00 79 18 106/66 99 11/01/22 06:00 87 11/01/22 04:00 98 F 85 17 124/68 97 11/01/22 04:00 90 16 97 Room Air 11/01/22 04:00 103/74 11/01/22 04:00 90 11/01/22 02:00 90 16 103/74 97 11/01/22 02:00 86 11/01/22 00:00 93 11/01/22 00:00 98.9 F 82 15 115/75 99 11/01/22 00:00 90 15 95 Room Air 11/01/22 00:00 107/78 10/31/22 22:00 90 15 107/78 95 10/31/22 22:00 92 10/31/22 20:00 99 F 90 15 96/55 L 99 10/31/22 20:00 89 15 100 Room Air 10/31/22 20:00 90 10/31/22 18:00 89 15 99/64 L 100 10/31/22 18:00 89 10/31/22 17:53 93/56 L 10/31/22 17:00 100 Room Air 10/31/22 16:00 99.2 F 89 15 93/56 L 100 10/31/22 16:00 Room Air 10/31/22 16:00 93 10/31/22 14:00 92 18 117/89 100 10/31/22 14:00 92 10/31/22 13:00 91 18 86/72 L 99 10/31/22 12:30 89 10/31/22 12:30 Room Air 10/31/22 12:15 89 15 104/77 100 Intake/Output Intake/Output: Intake & Output 10/29/22 10/30/22 10/31/22 11/01/22 23:59 23:59 23:59 23:59 Intake Total 3490 1150 Output Total 300 Balance 3490 850
--- NOTE | 2022-11-01 09:01 | P.PNNP_ITS ---
Progress Note: A&P Assessment and Plan (1) DIXON (acute kidney injury): Code(s): N17.9 - Acute kidney failure, unspecified Status: Acute Assessment and Plan: * improvement noted * suspect multifactorial etiology: * prerenal factors * NSAID use * methamphetamine use * elevated CPK/rhabomyolysis * hypotension * infection (?) -- noted positive blood cultures * evaluation to date: * CT of abdomen w/o obstruction * urine electrolytes non-prerena; * urine eosinophils negative * CPK mildly elevated but downtrending * IVFs transitioned to LR (from bicarb fluids) * follow repeat labs and UOP (2) Acute hyperkalemia: Code(s): E87.5 - Hyperkalemia Status: Acute Assessment and Plan: * improving * due to DIXON/ARF * medical management in ER * lokelma and IVP bicarb on admission to ICU * follow trend of K+ (3) Metabolic acidosis: Code(s): E87.20 - Acidosis, unspecified Status: Acute Assessment and Plan: * due to DIXON/ARF * lactic acid normal * corrected with bicarbonate fluids -- off currently (4) UTI (urinary tract infection): Code(s): N39.0 - Urinary tract infection, site not specified Status: Acute Assessment and Plan: * admission UA suggestive * follow urine/blood cultures * on empiric antibiotics (5) Encephalopathy: Code(s): G93.40 - Encephalopathy, unspecified Status: Acute Assessment and Plan: * likely due to combination of drug abuse and possible uremia * Head CT scan negative * follow mentation (6) Hypotension: Code(s): I95.9 - Hypotension, unspecified Status: Acute Assessment and Plan: * clinically better with IVF resuscitation * suspect precipitated by volume depletion and acidosis * follow BP readings Discussed case with Dr. Jacobsen. Will continue to follow. Subjective Date/time seen: 11/01/22 09:01 Interval history: Follow-up for acute kidney injury/acute renal failure, hyperkalemia, and metabolic acidosis. Repeat labs yesterday and this morning show improvement in renal function, potassium, and acidosis; better hemodynamics noted as well; CPK levels better as well; no other acute complaints voiced. Exam Narrative: General: middle aged Cauc[place] female in NAD Heart: normal S1 and S2; no rub Lungs: clear to auscultation Abdomen: soft, nontender, nondistended, positive bowel sounds Extremities: no cyanosis or clubbing; no edema Skin: warm and dry Objective Data Vital Signs Vital Signs: Vital Signs Temp Pulse Pulse Resp BP Pulse Ox O2 Del Method 11/01/22 08:00 92 19 94 Room Air 11/01/22 08:00 92 11/01/22 08:00 92 11/01/22 07:46 98.5 F 92 18 111/63 93 11/01/22 06:00 79 18 106/66 99 11/01/22 06:00 87 11/01/22 04:00 98 F 85 17 124/68 97 11/01/22 04:00 90 16 97 Room Air 11/01/22 04:00 103/74 11/01/22 04:00 90 11/01/22 02:00 90 16 103/74 97 11/01/22 02:00 86 11/01/22 00:00 93 11/01/22 00:00 98.9 F 82 15 115/75 99 11/01/22 00:00 90 15 95 Room Air 11/01/22 00:00 107/78 10/31/22 22:00 90 15 107/78 95 10/31/22 22
--- NOTE | 2022-11-01 09:47 | WPDINTPN ---
Subjective Date/time seen: 11/01/22 09:47 Interval history: 10/31: Pt is a 55 yo female that presented to the ER for altered mental status. She also presented with acute kidney injury with creatinine of 9.1 and BUN of 138. Pt was also in a state of metabolic acidosis. Was started on IV Fluids and bicarb. Pt has history of methamphetamine abuse with toxicology screen being positive. She also admitted to using naproxen the last few days due to pain all over . Elevated CK levels suggestive of rhabdomyolysis. UA was positive of leukocyte esterase and 4+ bacteria. Blood cultures grew gram-negative bacilli. Pt was started on IV levaquin. Glucose levels were 12 at the time of admission, pt was given d50 IV push in ER and was started on d10 infusion. Pt was also hyperkalemic. Insulin was held due to hypoglycemia. CT scans of abd and pelvis ordered. 11/01 Interval history: Pt was awake, alert, and oriented. UNable to recall president or year. Hemodynamically stable, afebrile and has began producing adequate urine output. Cr is down 2.3 from 9.10 on admission. K+ normal levels, CK trending down, LFTs trending down. Blood cultures grew gram-negative bacilli. Denies any SOB, chest pain. Today complains of abdominal pain. 1) Acute Kidney Failure - Creatinine dropped to 2.3. - CT abd and pelvis showed b/l small nonobstructing renal stones with no hydronephrosis - pt has had increased urine output and improvement in renal function - Continue to monitor urine output, electrolytes and creatinine 2) Sepsis secondary to UTI - culture grew gram negative bacilli - was started on IV levaquin but switched to cephalexin q24 - continue to monitor pt vitals 3) Rhabdomyolysis - CK trending down. IV fluids changed to lactated ringers 100ml/hr. Continue hydration 4) Metabolic Acidosis - resolving. - bicarbonate stopped as CO2 has reached normal levels. 5) Chronic Hepatitis C - mildly elevated LFTs - RUQ ulstrasound pending - hold statin 6) polysubstance abuse - pt admits to using amphetamines and drinking alcohol daily. admits to drinking fireball daily - screening w/ CIWA to prevent withdrawal. - will [place] after patient is more appropriate - continue folic acid and thiamine 7) Hypoglycemia - improved - currently off dextrose - continue accu-checks Objective Data Vital Signs Vital Signs: Vital Signs - 24 hr 10/31/22 10:00 10/31/22 10:01 10/31/22 10:15 Temperature Pulse Rate 89 88 91 Pulse Rate [Bilateral Pedal (Dorsalis Pedis)] Respiratory Rate Blood Pressure 86/65 L Pulse Oximetry 100 100 99 Oxygen Delivery Fraction of Inspired Oxygen 10/31/22 10:27 10/31/22 10:30 10/31/22 10:31 Temperature Pulse Rate 91 94 94 Pulse Rate [Bilateral Pedal (Dorsalis Pedis)] Respiratory Rate Blood Pressure 94/52 L 88/56 L Pulse Oximetry 100 97 100 Oxygen Delivery Fraction of Inspired Oxygen 10/31/22 10:45 10/31/22 10:46 10/31/22 11:00 Temperature Pulse Rate 92 91 99 Pulse Rate [Bilateral Pedal (Dorsalis Pedis)] Respiratory Rate Blood Pressure 89/47 L Pulse Oximetry 100 100 Oxygen Delivery Fraction of Inspired Oxygen 10/31/22 11:02 10/31/22 12:15 10/31/22 12:30 Temperature Pulse Rate 96 89 Pulse Rate [Bilateral Pedal (Dorsalis Pedis)] Respiratory Rate 15 Blood Pressure 133/106 H 104/77 Pulse Oximetry 100 100 Oxygen Delivery Room Air Fraction of Inspired Oxygen 10/31/22 12:30 10/31/22 13:00 10/31/22 14:00 Temperature Pulse Rate 89 91 92 Pulse Rate [Bilateral Pedal (Dorsalis Pedis)] Respiratory Rate 18 Blood Pressure 86/72 L Pulse Oximetry 99 Oxygen Delivery Fraction of Inspired Oxygen 10/31/22 14:00 10/31/22 16:00 10/31/22 16:00 Temperature Pulse Rate 92 93 Pulse Rate [Bilateral Pedal (Dorsalis Pedis)] Respiratory Rate 18 Blood Pressure 117/89 Pulse Oximetry 100 Oxygen Delivery Room Air Fraction of Inspired Oxygen
--- NOTE | 2022-11-01 10:07 | WPDNEURCNPN ---
Assessment and Plan Assessment and plan (1) Altered mental status: Code(s): R41.82 - Altered mental status, unspecified Status: Acute (2) UTI (urinary tract infection): Code(s): N39.0 - Urinary tract infection, site not specified Status: Acute (3) Polysubstance abuse: Code(s): F19.10 - Other psychoactive substance abuse, uncomplicated Status: Acute (4) DIXON (acute kidney injury): Code(s): N17.9 - Acute kidney failure, unspecified Status: Acute Plan Ms. Montgomery is a 57 year old female with a history of chronic alcoholism and polysubstance abuse presenting with altered mental status in the setting of methamphetamine use. Course has also been complicated by UTI, DIXON with resultant uremia, and alcohol withdrawal, which are all likely also contributing to her mental status change. She has evidence of left leg weakness on exam -- it is unclear if this chronic or new. Given the focality, will need neuroimaging to rule out stroke, especially in the setting of methamphetamine use. - Obtain MRI brain without contrast - Will continue to monitor mental status Consult date: 11/01/22 Reason for consult: Encephalopathy HPI: Missy Montgomery is a 57 year old female with a history of polysubstance abuse, alcoholism, hepatitis C presenting due to altered mental status. Patient was brought in by her family. Patient has reportedly been confused for days. Patient mentioned that she had been using methamphetamine and that she had been awake for 4 days. She also drinks daily, although how much she drinks is unclear. In the ED, patient was having difficulty answer questions. Her WBC was elevated at 17.5. Her UA was concerning for UTI. UDS was positive for methamphetamines. Her renal function was abnormal with BUN 138 and Cr 9.10 initially. She had severe acidosis with pH 7.192.She was also hypoglycemic initially with blood sugar of 56. TSH is low at 0.121. CT head showed chronic encephalomalacia in the anterior and lateral aspects of the left temporal lobe. Patient was started on IV antibiotics and admitted to the ICU on bicarbonate drip. Blood pressures have been stable since admission. Review of Systems Review of Systems: ROS unobtainable: Yes unobtainable due to medical condition and unobtainable due to mental status PMFSH Past Medical History Medical History Alcoholism Liquor and beer daily Cholecystitis Depression Endocarditis (1992) Hepatitis C Hyperparathyroidism Hypertension Polysubstance abuse History of polysubstance abuse. Denies current drug use. Was using multiple illicit drugs about 6 months ago. 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 Polysubstance abuse surrogate decision maker: [place], spouse. Code status: Full code. Smoking packs per day: 0.5 Smoking cigarettes per day: 10.0 Years smoked: 32 Smoking pack-years: 16.00 Smoking status: Current every day smoker Tobacco type: cigarettes Second hand tobacco smoke exposure: Yes Alcohol intake: current Drinks per week: 28 Alcohol use details: 3 - 4 double shots of fireball a day though she has decreased her intake over the past 6 months or so. Substance use: former Substance use type: amphetamines Other substance usage details: Previous polysubstance abuse. [place]
[2022-11-01 10:10] LABS: Sodium Urine Random 63 meq/L
--- NOTE | 2022-11-01 11:10 | PM.IMPN ---
Progress Note: A&P Assessment and Plan (1) DIXON (acute kidney injury): Code(s): N17.9 - Acute kidney failure, unspecified Status: Acute Assessment and Plan: Creatinine much improved. patient presented with acute kidney injury with creatinine 9.1 and BUN of 138. Patient admitted drug abuse with methamphetamine, [id number] naproxen use, has elevated CK suggestive of rhabdomyolysis which may be complimented by dehydration making it likely multifactorial renal failure Appreciate Nephrology evaluation discontinue bicarb infusion as CO2 is elevated -switch IV fluids to LR 100 mL/hours. -CT scan of the abdomen and pelvis showed bilateral small non obstructing renal stones, no ureteral stones or hydronephrosis. -patient with increased urine output and improvement in her renal function -Monitor urine output electrolytes and creatinine (2) Acute hyperkalemia: Code(s): E87.5 - Hyperkalemia Status: Acute Assessment and Plan: Resolved with treatment (3) Rhabdomyolysis: Code(s): M62.82 - Rhabdomyolysis Status: Acute Assessment and Plan: CK trending down, continue IV fluids (4) Metabolic acidosis: Code(s): E87.20 - Acidosis, unspecified Status: Acute Assessment and Plan: Resolved (5) UTI (urinary tract infection): Code(s): N39.0 - Urinary tract infection, site not specified Status: Acute Assessment and Plan: Urine culture pending Blood culture growing Gram-negative bacilli 1/2 bottle Continue IV Levaquin (6) Encephalopathy: Code(s): G93.40 - Encephalopathy, unspecified Status: Acute Assessment and Plan: Likely toxic encephalopathy secondary drug abuse, acidosis, uremia Head CT : Chronic encephalomalacia in the anterior and lateral aspects of left temporal lobe. Neurology consulted Monitor (7) Hypoglycemia: Code(s): E16.2 - Hypoglycemia, unspecified Status: Acute Assessment and Plan: resolved, off dextrose Continue Accu-Cheks (8) Hepatitis C: Qualifiers: Viral hepatitis chronicity: unspecified Hepatic coma status: without hepatic coma Qualified Code(s): B19.20 - Unspecified viral hepatitis C without hepatic coma Code(s): B19.20 - Unspecified viral hepatitis C without hepatic coma Status: Acute Assessment and Plan: Mildly elevated liver enzymes. Hold statin (9) Hypotension: Code(s): I95.9 - Hypotension, unspecified Status: Acute Assessment and Plan: RESOLVED Likely secondary to dehydration, hypovolemia, acidosis Lactic acid level was normal Blood pressure improved with IV fluids and sodium bicarbonate Monitor (10) Polysubstance abuse: Code(s): F19.10 - Other psychoactive substance abuse, uncomplicated Status: Acute Assessment and Plan: Patient admits to alcohol abuse smoking and methamphetamine abuse Patient admits to drinking whiskey fireball every day. Absolutely denies drinking antifreeze or any other adulterated alcohol -will loan counselor patient when she is more appropriate -continue folic acid and thiamine Subjective Date/time seen: 11/01/22 11:10 Interval history: Patient seen and examined in the ICU, is sleepy but arousable Review of Systems Review of Systems: ROS unobtainable: Yes unobtainable due to medical condition and unobtainable due to mental status Exam Narrative: General: Pt is sleepy but arousable Lungs/Chest: Trachea central Clear BS B/L, No crackles or wheezing. Cardiac: RRR. Normal S1 S2. No murmurs Circulation: Both feet are warm, palpable pedal pulses Abdomen: Normal bowel sounds. Obese. Soft, tender to palpation suprapubic and right upper quadrant region Extremities: No clubbing, cyanosis or edema. Warm : Lopez in place Neurologic: Pupils equal and reactive, patient is awake, alert, oriented to place, did not know the president or the year. Moves all extremities and f
[2022-11-01 11:25] LABS: Eosinophil Urine None Seen % (None Seen); Urine Eos QC 2nd Tech Confirmed
[2022-11-01] MEDS: cefTRIAXone 2 GM/NS 100 ML 2 GM/100 ML BAG IVPB (11:41)
[2022-11-01] MEDS: chlordiazePOXIDE (*CRX) 25 MG CAPSULE PO ×2 (11:41→17:00)
[2022-11-01 12:01] LABS: Glucose Point of Care 87 mg/dl (65-105)
[2022-11-01 16:51] LABS: Glucose Point of Care 63 mg/dl (65-105)
[2022-11-01] MEDS: DEXTROSE 50% 25 GM/50 ML SYRINGE IV PUSH (16:56)
[2022-11-01 17:08] LABS: Glucose Point of Care 244 mg/dl (65-105)
[2022-11-02] VITALS: BP 132/79; BP 136/68; PULSE 82; PULSE 88; RESP 17; TEMP 37.3; O2SAT 94
[2022-11-02] MEDS: chlordiazePOXIDE (*CRX) 25 MG CAPSULE PO ×4 (01:02→17:30)
[2022-11-02 01:46] LABS: Glucose Point of Care 94 mg/dl (65-105)
[2022-11-02 04:00] VITALS: BP 136/68; BP 136/78; PULSE 75; PULSE 88; RESP 16; TEMP 37.1; O2SAT 99
[2022-11-02 05:11] LABS: Basophils Percent Auto 0.4 % (0.2-1.2); Eosinophils Absolute Auto 0.2 K/mm3 (0-0.3); Eosinophils Percent Auto 2.7 % (0-4.4); Hematocrit 33.4 % (37.0-47.0); Hemoglobin 11.1 g/dL (12.0-15.0); Immature Granulocyte Absolute 0.06 K/mm3 (0.00-0.031); Immature Granulocyte Percent A 0.7 % (0-0.5); Lymphocytes Absolute Auto 1.61 K/mm3 (0.9-3.2); Mean Corpuscular HGB Conc 33.2 g/dl (32-36); Mean Corpuscular Hemoglobin 30.6 pg (26-34); Mean Platelet Volume 9.7 fl (7.4-10.4); Monocytes Absolute Auto 1.2 K/mm3 (0.1-0.6); Monocytes Percent Auto 14.4 % (2.6-8.5); Neutrophils Percent Auto 61.8 % (45.5-73.1); Platelet Count Result 342 k/mm3 (150-375); Red Blood Count 3.63 M/mm3 (4.2-5.4); Red Cell Distribution Width 13.8 % (11.5-14.5); White Blood Count 8.1 K/mm3 (4.5-10.0)
[2022-11-02 05:12] LABS: Alanine Aminotransferase 33 U/L (6-35); Albumin Level 3.3 g/dL (3.5-5.1); Alkaline Phosphatase 106 U/L (38-126); Anion Gap 4 mmol/L (8-16); Aspartate Amino Transferase 24 U/L (14-36); Bilirubin,Total 0.5 mg/dL (0.2-1.3); Blood Urea Nitrogen 32 mg/dL (7-17); Calcium 8.1 mg/dL (8.4-10.2); Carbon Dioxide 30 mmol/L (22-30); Chloride 106 mmol/L (98-107); Creatine Kinase 135 U/L (30-135); Estimated CRCL calculation 64 ml/min; Estimated Glomerular Filt Rate > 60; Glucose 111 mg/dL (65-110); Magnesium 1.9 mg/dL (1.6-2.3); Phosphorus 1.8 mg/dL (2.5-4.5); Potassium 3.5 mmol/L (3.4-5.0); Sodium 140 mmol/L (137-145)
[2022-11-02 06:43] LABS: Glucose Point of Care 106 mg/dl (65-105)
[2022-11-02 08:00] VITALS: BP 136/90; PULSE 86; RESP 20; TEMP 36.6; O2SAT 99
[2022-11-02] MEDS: FOLIC ACID 1 MG/0.2 ML INJ IV PUSH (08:11)
[2022-11-02] MEDS: ENOXAPARIN 30 MG/0.3 ML SYRINGE SUB-Q (08:11)
[2022-11-02] MEDS: THIAMINE HCL 200 MG/2 ML VIAL 100 MG IV PUSH (08:11)
[2022-11-02] MEDS: POTASSIUM PHOS,M-BASIC-D-BASIC 40 MMOL in SODIUM CHLORIDE 0.9% IV 250 ML 43.89 MMOL IVPB (10:22)
--- NOTE | 2022-11-02 11:37 | PM.IMPN ---
Progress Note: A&P Assessment and Plan (1) DIXON (acute kidney injury): Code(s): N17.9 - Acute kidney failure, unspecified Status: Acute Assessment and Plan: Creatinine normal now Discontinue IV fluid -Monitor urine output electrolytes and creatinine (2) Acute hyperkalemia: Code(s): E87.5 - Hyperkalemia Status: Acute Assessment and Plan: Resolved with treatment (3) Rhabdomyolysis: Code(s): M62.82 - Rhabdomyolysis Status: Acute Assessment and Plan: Resolved. Discontinue IV fluid (4) Metabolic acidosis: Code(s): E87.20 - Acidosis, unspecified Status: Acute Assessment and Plan: Resolved (5) UTI (urinary tract infection): Code(s): N39.0 - Urinary tract infection, site not specified Status: Acute Assessment and Plan: Continue IV Rocephin (6) Encephalopathy: Code(s): G93.40 - Encephalopathy, unspecified Status: Acute Assessment and Plan: Likely toxic encephalopathy secondary drug abuse, acidosis, uremia Head CT : Chronic encephalomalacia in the anterior and lateral aspects of left temporal lobe. (7) Hepatitis C: Qualifiers: Viral hepatitis chronicity: unspecified Hepatic coma status: without hepatic coma Qualified Code(s): B19.20 - Unspecified viral hepatitis C without hepatic coma Code(s): B19.20 - Unspecified viral hepatitis C without hepatic coma Status: Acute Assessment and Plan: Mildly elevated liver enzymes. Hold statin (8) Hypotension: Code(s): I95.9 - Hypotension, unspecified Status: Acute Assessment and Plan: RESOLVED (9) Polysubstance abuse: Code(s): F19.10 - Other psychoactive substance abuse, uncomplicated Status: Acute Assessment and Plan: Patient admits to alcohol abuse smoking and methamphetamine abuse Patient admits to drinking whiskey fireball every day. Absolutely denies drinking antifreeze or any other adulterated alcohol -will guidance counselor patient when she is more appropriate -continue folic acid and thiamine Subjective Date/time seen: 11/02/22 11:37 Interval history: No new issues overnight. Awake alert Review of Systems Review of Systems: All systems reviewed & are unremarkable except as noted in HPI and below Exam Narrative: General: No acute distress Lungs/Chest: Trachea central Clear BS B/L, No crackles or wheezing. Cardiac: RRR. Normal S1 S2. No murmurs Circulation: Both feet are warm, palpable pedal pulses Abdomen: Normal bowel sounds. Obese. Soft, tender to palpation suprapubic and right upper quadrant region Extremities: No clubbing, cyanosis or edema. Warm : Lopez in place Neurologic: Pupils equal and reactive, patient is awake, alert, oriented to place, Skin: No Rash Objective Data Vital Signs Vital Signs: Vital Signs - 24 hr 11/01/22 12:00 11/01/22 12:00 11/01/22 16:00 Temperature 98.5 F Pulse Rate 88 94 88 Pulse Rate [Bilateral Pedal (Dorsalis Pedis)] Respiratory Rate 16 16 Blood Pressure 101/69 Pulse Oximetry 97 98 Oxygen Delivery Nasal Cannula Oxygen Flow Rate 2 Fraction of Inspired Oxygen 11/01/22 16:00 11/01/22 16:00 11/01/22 16:00 Temperature 98.4 F Pulse Rate 88 88 Pulse Rate [Bilateral Pedal (Dorsalis Pedis)] 88 Respiratory Rate 16 Blood Pressure 112/77 112/77 Pulse Oximetry 98 Oxygen Delivery Oxygen Flow Rate Fraction of Inspired Oxygen 11/01/22 20:00 11/01/22 20:00 11/01/22 20:00 Temperature 99.5 F Pulse Rate 87 88 87 Pulse Rate [Bilateral Pedal (Dorsalis Pedis)] Respiratory Rate 16 18 Blood Pressure 132/79 Pulse Oximetry 98 95 Oxygen Delivery Nasal Cannula Oxygen Flow Rate 2 Fraction of Inspired Oxygen 21 11/02/22 00:00 11/02/22 00:00 11/02/22 00:00 Temperature 99.1 F Pulse Rate 82 82 Pulse Rate [Bilateral Pedal (Dorsalis Pedis)] 88 Respiratory Rate 17 Blood Pres
[2022-11-02 12:00] VITALS: PULSE 80
--- NOTE | 2022-11-02 12:01 | PM.PNNEP ---
Progress Note: A&P Assessment and Plan (1) DIXON (acute kidney injury): Code(s): N17.9 - Acute kidney failure, unspecified Status: Acute Assessment and Plan: back to baseline/resolved suspect multifactorial etiology: prerenal factors NSAID use methamphetamine use elevated CPK/rhabomyolysis hypotension infection (?) -- noted positive blood cultures evaluation to date: CT of abdomen w/o obstruction urine electrolytes non-prerena; urine eosinophils negative CPK mildly elevated but downtrending off IVFs discontinue renal diet replete electrolytes as needed follow repeat labs and UOP (2) Acute hyperkalemia: Code(s): E87.5 - Hyperkalemia Status: Acute Assessment and Plan: resolved due to DIXON/ARF medical management in ER lokelnd and IVP bicarb on admission to ICU follow trend of K+ (3) Metabolic acidosis: Code(s): E87.20 - Acidosis, unspecified Status: Acute Assessment and Plan: resolved due to DIXON/ARF lactic acid normal corrected with bicarbonate fluids -- off currently (4) UTI (urinary tract infection): Code(s): N39.0 - Urinary tract infection, site not specified Status: Acute Assessment and Plan: admission UA suggestive urine culture with Klebsiella blood culture with GNB on antibiotics (5) Encephalopathy: Code(s): G93.40 - Encephalopathy, unspecified Status: Acute Assessment and Plan: clinical improvement noted likely due to combination of drug abuse and possible uremia Head CT scan negative follow mentation (6) Hypotension: Code(s): I95.9 - Hypotension, unspecified Status: Acute Assessment and Plan: resolved/improving clinically better s/p IVF resuscitation secondary to volume depletion and acidosis follow BP readings Nothing much else to add from renal perspective -- will follow from a distance. Subjective Date/time seen: 11/02/22 12:01 Interval history: Follow-up for acute kidney injury/acute renal failure, hyperkalemia, and metabolic acidosis. No new issues or problems voiced at the time of my visit; renal function has normalized with stability in potassium and acid-base status; making good urine output in the last 24 - 48 hours; mentation seems to be doing doing better as well. Exam Narrative: General: middle aged Cauc[place] female in NAD Heart: normal S1 and S2; no rub Lungs: clear to auscultation Abdomen: soft, nontender, nondistended, positive bowel sounds Extremities: no cyanosis or clubbing; no edema Skin: warm and intact Objective Data Vital Signs Vital Signs: Vital Signs Temp Pulse Pulse Resp BP Pulse Ox O2 Del Method 11/02/22 12:00 80 11/02/22 08:00 86 20 99 Nasal Cannula 11/02/22 08:00 97.8 F 86 20 136/90 99 11/02/22 08:00 86 11/02/22 04:00 98.8 F 75 16 136/78 99 11/02/22 04:00 88 136/68 11/02/22 04:00 75 11/02/22 00:00 99.1 F 82 17 136/68 94 11/02/22 00:00 88 132/79 11/02/22 00:00 82 11/01/22 20:00 99.5 F 87 18 132/79 95 11/01/22 20:00 88 16 98 Nasal Cannula 11/01/22 20:00 87 Intake/Output Intake/Output: Intake & Output 10/30/22 10/31/22 11/01/22 11/02/22 23:59 23:59 23:59 23:59 Intake Total 3490 3200 500 Output Total 2000 1000 Balance 3490 1200 -500 Meds/Results Medications: Active Medications Generic Name Dose Route Start Last Admin Trade Name Freq PRN Reason Stop Dose Admin Chlordiazepoxide HCl 25 mg 11/01/22 12:00 11/02/22 13:27 Chlordiazepoxide (*Crx) 25 Mg Capsule PO 25 mg Q6HR NORRIS Administration Dextrose 12.5 gm 10/31/22 11:17 11/01/22 16:56 Dextrose 50% 25 Gm/50 Ml Syringe IV PUSH 12.5 gm PRN PRN Administration Hypoglycemia Protocol Enoxaparin Sodium 30 mg 11/01/22 09:00 11/02/22 08:11 Enoxaparin 30 Mg/0.3 Ml Syringe PAULINO
--- NOTE | 2022-11-02 12:01 | P.PNNP_ITS ---
Progress Note: A&P Assessment and Plan (1) DIXON (acute kidney injury): Code(s): N17.9 - Acute kidney failure, unspecified Status: Acute Assessment and Plan: * back to baseline/resolved * suspect multifactorial etiology: * prerenal factors * NSAID use * methamphetamine use * elevated CPK/rhabomyolysis * hypotension * infection (?) -- noted positive blood cultures * evaluation to date: * CT of abdomen w/o obstruction * urine electrolytes non-prerena; * urine eosinophils negative * CPK mildly elevated but downtrending * off IVFs * discontinue renal diet * replete electrolytes as needed * follow repeat labs and UOP (2) Acute hyperkalemia: Code(s): E87.5 - Hyperkalemia Status: Acute Assessment and Plan: * resolved * due to DIXON/ARF * medical management in ER * lokelma and IVP bicarb on admission to ICU * follow trend of K+ (3) Metabolic acidosis: Code(s): E87.20 - Acidosis, unspecified Status: Acute Assessment and Plan: * resolved * due to DIXON/ARF * lactic acid normal * corrected with bicarbonate fluids -- off currently (4) UTI (urinary tract infection): Code(s): N39.0 - Urinary tract infection, site not specified Status: Acute Assessment and Plan: * admission UA suggestive * urine culture with Klebsiella * blood culture with GNB * on antibiotics (5) Encephalopathy: Code(s): G93.40 - Encephalopathy, unspecified Status: Acute Assessment and Plan: * clinical improvement noted * likely due to combination of drug abuse and possible uremia * Head CT scan negative * follow mentation (6) Hypotension: Code(s): I95.9 - Hypotension, unspecified Status: Acute Assessment and Plan: * resolved/improving * clinically better s/p IVF resuscitation * secondary to volume depletion and acidosis * follow BP readings Nothing much else to add from renal perspective -- will follow from a distance. Subjective Date/time seen: 11/02/22 12:01 Interval history: Follow-up for acute kidney injury/acute renal failure, hyperkalemia, and metabolic acidosis. No new issues or problems voiced at the time of my visit; renal function has normalized with stability in potassium and acid-base status; making good urine output in the last 24 - 48 hours; mentation seems to be doing doing better as well. Exam Narrative: General: middle aged Caucasia female in NAD Heart: normal S1 and S2; no rub Lungs: clear to auscultation Abdomen: soft, nontender, nondistended, positive bowel sounds Extremities: no cyanosis or clubbing; no edema Skin: warm and intact Objective Data Vital Signs Vital Signs: Vital Signs Temp Pulse Pulse Resp BP Pulse Ox O2 Del Method 11/02/22 12:00 80 11/02/22 08:00 86 20 99 Nasal Cannula 11/02/22 08:00 97.8 F 86 20 136/90 99 11/02/22 08:00 86 11/02/22 04:00 98.8 F 75 16 136/78 99 11/02/22 04:00 88 136/68 11/02/22 04:00 75 11/02/22 00:00 99.1 F 82 17 136/68 94 11/02/22 00:00 88 132/79 11/02/22 00:00 82 11/01/22 20:00 99.5 F 87 18 132/79 95 11/01/22 20:00 88 16 98 Nasal Cannula 11/01/22 20:00 87
[2022-11-02] MEDS: cefTRIAXone 2 GM/NS 100 ML 2 GM/100 ML BAG IVPB (13:17)
[2022-11-02 16:00] VITALS: BP 127/82; PULSE 79; RESP 14; TEMP 36.2; O2SAT 95
[2022-11-02 16:25] LABS: Glucose Point of Care 124 mg/dl (65-105)
[2022-11-03] VITALS: BP 124/70; PULSE 79; RESP 16; TEMP 37.4; O2SAT 97
[2022-11-03] MEDS: chlordiazePOXIDE (*CRX) 25 MG CAPSULE PO ×2 (00:41→06:22)
[2022-11-03 04:00] VITALS: PULSE 79
[2022-11-03 04:35] LABS: Hemoglobin 11.1 g/dL (12.0-15.0); Mean Corpuscular HGB Conc 32.6 g/dl (32-36); Mean Corpuscular Hemoglobin 30.3 pg (26-34); Mean Corpuscular Volume 92.9 fl (80-100); Mean Platelet Volume 9.3 fl (7.4-10.4); Platelet Count Result 324 k/mm3 (150-375); Red Blood Count 3.66 M/mm3 (4.2-5.4); Red Cell Distribution Width 13.3 % (11.5-14.5); White Blood Count 8.8 K/mm3 (4.5-10.0)
[2022-11-03 04:47] LABS: Anion Gap 3 mmol/L (8-16); Blood Urea Nitrogen 17 mg/dL (7-17); Calcium 8.1 mg/dL (8.4-10.2); Carbon Dioxide 25 mmol/L (22-30); Chloride 107 mmol/L (98-107); Estimated CRCL calculation 78 ml/min; Estimated Glomerular Filt Rate > 60; Glucose 92 mg/dL (65-110); Phosphorus 2.1 mg/dL (2.5-4.5); Potassium 4.4 mmol/L (3.4-5.0); Sodium 135 mmol/L (137-145)
[2022-11-03 06:17] LABS: Glucose Point of Care 116 mg/dl (65-105)
[2022-11-03 06:17] LABS: Glucose Point of Care 104 mg/dl (65-105)
[2022-11-03 08:00] VITALS: BP 133/88; PULSE 72; RESP 16; TEMP 36.6; O2SAT 96
--- NOTE | 2022-11-03 08:05 | PM.IMPN ---
Progress Note: A&P Assessment and Plan (1) Bacteremia: Code(s): R78.81 - Bacteremia Status: Acute Assessment and Plan: Gram-negative bacilli isolated from blood cultures 10/31, sensitivities pending Treated with Rocephin 2 g daily since 10/31 Repeat blood cultures ordered 11/03, pending (2) DIXON (acute kidney injury): Code(s): N17.9 - Acute kidney failure, unspecified Status: Acute Assessment and Plan: Resolved (3) Acute hyperkalemia: Code(s): E87.5 - Hyperkalemia Status: Acute Assessment and Plan: Resolved (4) Rhabdomyolysis: Code(s): M62.82 - Rhabdomyolysis Status: Acute Assessment and Plan: Resolved. Discontinue IV fluids (5) Metabolic acidosis: Code(s): E87.20 - Acidosis, unspecified Status: Acute Assessment and Plan: Resolved (6) UTI (urinary tract infection): Code(s): N39.0 - Urinary tract infection, site not specified Status: Acute Assessment and Plan: Urine culture positive for pansensitive Klebsiella, being treated with Rocephin, started on 10/31 (7) Encephalopathy: Code(s): G93.40 - Encephalopathy, unspecified Status: Acute Assessment and Plan: Resolved (8) Hepatitis C: Qualifiers: Hepatic coma status: without hepatic coma Viral hepatitis chronicity: unspecified Qualified Code(s): B19.20 - Unspecified viral hepatitis C without hepatic coma Code(s): B19.20 - Unspecified viral hepatitis C without hepatic coma Status: Acute Assessment and Plan: LFTs pending, hold statin (9) Hypotension: Code(s): I95.9 - Hypotension, unspecified Status: Acute Assessment and Plan: Resolved (10) Polysubstance abuse: Code(s): F19.10 - Other psychoactive substance abuse, uncomplicated Status: Acute Assessment and Plan: Significant alcohol use as well as methamphetamine abuse, supportive care, CIWA protocol, continue thiamine and folate 11/03: CIWA score is 0 today, discontinue Librium Plan DVT prophylaxis with SCDs GI prophylaxis not indicated Code status full code Subjective Date/time seen: 11/03/22 08:05 Interval history: 57-year-old female with history of polysubstance abuse and alcoholism is presenting with altered mental status and currently being treated for acute kidney injury with UTI. No overnight events noted. No chest pain or shortness of breath. No nausea, vomiting or diarrhea. No fevers or chills. Patient opted to leave AMA. Risks of leaving including discussed extensively with patient. Script for Augmentin for 2 weeks was given to patient per med rec. Review of Systems Review of Systems: 12 point review of systems was assessed and was negative except as noted in the HPI Exam Narrative: General: No acute distress Lungs/Chest: Trachea central Clear BS B/L, No crackles or wheezing. Cardiac: RRR. Normal S1 S2. No murmurs Circulation: Both feet are warm, palpable pedal pulses Abdomen: Normal bowel sounds. Obese. Soft, tender to palpation suprapubic and right upper quadrant region Extremities: No clubbing, cyanosis or edema. Warm : Lopez in place Neurologic: Pupils equal and reactive, patient is awake, alert, oriented to place, Skin: No Rash Objective Data Vital Signs Vital Signs: Vital Signs - 24 hr 11/02/22 12:00 11/02/22 16:00 11/02/22 20:00 Temperature 97.2 F L Pulse Rate 80 79 Pulse Rate [Bilateral Pedal (Dorsalis Pedis)] Respiratory Rate 14 Blood Pressure 127/82 Pulse Oximetry 95 Oxygen Delivery Room Air Fraction of Inspired Oxygen 21 11/03/22 00:00 11/03/22 00:00 11/03/22 04:00 Temperature 99.3 F Pulse Rate 79 Pulse Rate [Bilateral Pedal (Dorsalis Pedis)] 79 79 Respiratory Rate 16 Blood Pressure 124/70 Pulse Oximetry 97 Oxygen Delivery Fraction of Inspired Oxygen
[2022-11-03] MEDS: THIAMINE HCL 200 MG/2 ML VIAL 100 MG IV PUSH (08:50)
[2022-11-03] MEDS: ENOXAPARIN 30 MG/0.3 ML SYRINGE SUB-Q (08:51)
[2022-11-03] MEDS: FOLIC ACID 1 MG/0.2 ML INJ IV PUSH (08:51)
[2022-11-03 10:04] LABS: Alanine Aminotransferase 27 U/L (6-35); Albumin Level 3.3 g/dL (3.5-5.1); Alkaline Phosphatase 95 U/L (38-126); Anion Gap 3 mmol/L (8-16); Aspartate Amino Transferase 19 U/L (14-36); Bilirubin,Total 0.2 mg/dL (0.2-1.3); Blood Urea Nitrogen 15 mg/dL (7-17); Calcium 8.5 mg/dL (8.4-10.2); Carbon Dioxide 24 mmol/L (22-30); Chloride 104 mmol/L (98-107); Estimated CRCL calculation 88 ml/min; Estimated Glomerular Filt Rate > 60; Glucose 114 mg/dL (65-110); Potassium 4.3 mmol/L (3.4-5.0); Sodium 131 mmol/L (137-145)
[2022-11-03] MEDS: cefTRIAXone 2 GM/NS 100 ML 2 GM/100 ML BAG IVPB (11:48)
[2022-11-03 11:54] LABS: Glucose Point of Care 96 mg/dl (65-105)
--- NOTE | 2022-11-03 12:31 | PC.NURSE ---
pt states that she is going home today, new blood cultures obtained today. Dr. Gundersonhere and explained to pt that the culture results should be back in 48 hrs, pt insisted she was going home. AMA papers signed, 1220, pt escorted to fromt door by staff
--- NOTE | 2022-11-03 13:07 | PC.NURSE ---
removed vera and iv prior to discharge
[2022-11-03 18:57] LABS: Osmolality, Urine 510 mOsm/kg (50-1200)
[2022-11-18 14:35] LABS: T3 Free 2.0 pg/mL
== END 2022-11-03 12:20 | disposition left against medical advice (07) | DRG 469 ==
LOC: ANHED 09:33 → ANHICU 11:23
PROVIDERS: Hospitalist; Internal Medicine; Nurse Practitioner; Admitting Provider Chiropractor; Emergency Provider Emergency Medicine; PCP Family Medicine; Visit Provider Student in an Organized Health Care Education/Training Program
DX: N17.9 Acute kidney failure, unspecified (principal); G92.8 Other toxic encephalopathy; R78.81 Bacteremia; E87.20 Acidosis, unspecified; M62.82 Rhabdomyolysis; I95.9 Hypotension, unspecified; G93.89 Other specified disorders of brain; N39.0 Urinary tract infection, site not specified; B19.20 Unspecified viral hepatitis C without hepatic coma; B96.1 Klebsiella pneumoniae [K. pneumoniae] as the cause of diseases classified elsewhere; I10 Essential (primary) hypertension; E16.2 Hypoglycemia, unspecified; E87.5 Hyperkalemia; E21.3 Hyperparathyroidism, unspecified; F10.20 Alcohol dependence, uncomplicated; F15.10 Other stimulant abuse, uncomplicated; F17.210 Nicotine dependence, cigarettes, uncomplicated; F32.A Depression, unspecified
CPT/HCPCS: 36415; 36600; 70450; 70551; 71045; 74176; 76705; 80048; 80053; 80307; 81001; 81025; 82140; 82550; 82570; 82805; 82948; 83605; 83735; 83930; 83935; 84100; 84300; 84439; 84443; 84480; 84484; 85025; 85027; 85610; 85730; 85999; 87040; 87077; 87086; 87186; 93005; 93306; 96361; 96365; 96375; 99285; A9270; J0612; J0696; J1610; J1630; J1650; J1956; J3411; J7030; J7050; J7070; J7120

== ENCOUNTER 2023-08-23 11:01 | Outpatient (CLI) | payer OTHER, SELFPAY ==
[2023-08-23 11:55] LABS: Basophils Absolute Auto 0.1 K/mm3 (0.0-0.1); Basophils Percent Auto 0.7 % (0.2-1.2); Eosinophils Absolute Auto 1.1 K/mm3 (0-0.3); Eosinophils Percent Auto 10.9 % (0-4.4); Hematocrit 44.6 % (37.0-47.0); Hemoglobin 14.4 g/dL (12.0-15.0); Immature Granulocyte Absolute 0.07 K/mm3 (0.00-0.031); Immature Granulocyte Percent A 0.7 % (0-0.5); Lymphocytes Absolute Auto 2.39 K/mm3 (0.9-3.2); Lymphocytes Percent Auto 24.6 % (18.3-44.2); Mean Corpuscular HGB Conc 32.3 g/dl (32-36); Mean Corpuscular Hemoglobin 29.4 pg (26-34); Mean Platelet Volume 9.6 fl (7.4-10.4); Monocytes Absolute Auto 0.7 K/mm3 (0.1-0.6); Monocytes Percent Auto 7.3 % (2.6-8.5); Neutrophils Absolute Auto 5.4 K/mm3 (1.3-6.7); Neutrophils Percent Auto 55.8 % (45.5-73.1); Platelet Count Result 422 k/mm3 (150-375); Red Cell Distribution Width 15.4 % (11.5-14.5); White Blood Count 9.7 K/mm3 (4.5-10.0)
[2023-08-23 12:02] LABS: Alanine Aminotransferase 13 U/L (6-35); Albumin Level 4.6 g/dL (3.5-5.1); Alkaline Phosphatase 115 U/L (38-126); Anion Gap 7 mmol/L (4-12); Aspartate Amino Transferase 18 U/L (14-36); Bilirubin,Total 0.6 mg/dL (0.2-1.3); Blood Urea Nitrogen 32 mg/dL (7-17); Calcium 9.9 mg/dL (8.4-10.2); Carbon Dioxide 23 mmol/L (22-30); Chloride 109 mmol/L (98-107); Cholesterol 236 mg/dL (0-200); Estimated Glomerular Filt Rate > 60; Glucose 95 mg/dL (65-110); HDL Direct 76 mg/dL; Potassium 4.4 mmol/L (3.4-5.0); Sodium 139 mmol/L (137-145); Triglycerides 87 mg/dL (<150)
[2023-08-23 12:12] LABS: LDL Cholesterol Direct 132 mg/dL
[2023-08-23 13:09] LABS: Vitamin D 25 Hydroxy 47.6 ng/mL
== END 2023-08-23 11:02 | disposition home or self-care (01) ==
LOC: ANHLAB 11:05
PROVIDERS: PCP Family Medicine; Visit Provider Family Medicine
DX: I10 Essential (primary) hypertension (principal)
CPT/HCPCS: 36415; 80053; 80061; 82306; 84443; 85025

== ENCOUNTER 2024-10-05 11:42 | Outpatient (CLI) | payer OTHER, SELFPAY ==
--- NOTE | ~2024-10-05 | MM_ITS ---
EXAMINATION: MM screening yanely BI w ryan HISTORY: Screening mammogram TECHNIQUE: Craniocaudal and mediolateral oblique 3-D tomosynthesis images were obtained and synthetic 2-D images were generated. CAD analysis was submitted and interpreted. COMPARISON: 07/18/2022, 12/21/2020, 10/31/2020 BREAST PARENCHYMAL COMPOSITION:Not Dense. The breasts are almost entirely fatty FINDINGS: No suspicious mass, calcification, or architectural distortion are identified in either martin ast to suggest malignancy. There has been no suspicious interval change. IMPRESSION: No mammographic evidence of malignancy. Recommend routine screening mammography in one year. BI-RADS Category 1: Negative Reviewed, dictated and finalized at location .
--- OUTSIDE RECORDS SUMMARY | 2024-10-05 11:46 | XMS_ITS | Clinical Summary ---
Author Organization [facility] Address [address] [place] [id number] Care Team Providers [employer] Name Role Phone Unavailable Primary Care Provider Unavailabl e Social History Tobacco Use Types Packs/Day Years Used Date Smoking Tobacco: Never Assessed Comments Unknown Sex and Gender Information Value Date Recorded Sex Assigned at Not on file Legal Sex Female 5:02 PM CDT Gender Identity Not on file Sexual Orientation Not on file Last Filed Vital Signs Vital Sign Reading Time Taken Comments Blood Pressure 140/83 03/04/2009 3:00 PM STATUE CARVER Pulse 68 03/04/2009 3:00 PM STATUE CARVER Temperature - - Respiratory Rate - - Oxygen Saturation - - Inhaled Oxygen Concentration - - Weight 74.4 kg (164 lb) 03/04/2009 3:00 PM STATUE CARVER Height 171.5 cm (5' 7.5) 03/04/2009 3:00 PM STATUE CARVER Body Mass Index 25.31 03/04/2009 3:00 PM STATUE CARVER Plan of Treatment Health Maintenance Due Date Last Done Comments Cervical Cancer Screening Pa p Smear (Age 30 to 64) Every 3 Years 1963 Colorectal Cancer Screening Colonoscopy (10 Years) 1963 Annual Physical 08/07/1966 Hepatitis C 08/07/1981 DTaP, Tdap and Td Vaccines ( 1 - Tdap) 08/07/1982 Cervical Cancer Screening Pa p with HPV Testing (Age 30 to 64) Every 5 Years 08/07/1993 Cervical Cancer Screening with HPV 08/07/1993 Mammogram Screening 2003 Pneumococcal Vaccine: 50+ Ye ars (1 of 1 - PCV) 08/07/2013 Zoster Vaccines (1 of 2) 08/07/2013 COVID-19 Vaccine ( - 2023-2 5 season) 2023 RSV Immunization or 60+ Years (1 - 1-dose 75+ series) 08/07/2038 Meningococcal B Vaccine Aged Out No l onger eligible based on patient's age to complete this topic Meningococcal Vaccine Aged Out No nura rhea eligible based on patient's age to complete this topic RSV Immunizations Under 20 Months Aged Out No longer eligible based on patient's age to complete this topic Additional Health Concerns Infection Onset Date Last Indicated MRSA 10/31/2016 10/31/2016
== END 2024-10-05 11:43 | disposition home or self-care (01) ==
LOC: ANHIMG 11:44
PROVIDERS: PCP Family Medicine; Visit Provider Family Medicine
DX: Z12.31 Encounter for screening mammogram for malignant neoplasm of breast (principal)
CPT/HCPCS: 77063; 77067